=== PATIENT | male | born 1970 | race Caucasian/White ===

== ENCOUNTER 2017-09-08 02:17 | Inpatient (IN) | payer OTHER ==
[2017-09-08] MEDS ORDERED: Thiamine IV 100 MG, Folic Acid IV* 1 MG, Multiple Vitamin IV ADULT* 10 ML in D5NS 0.9% ... IV ONE (02:45)
[2017-09-08] MEDS ORDERED: Pantoprazole IV* 40 MG IV ONE (02:46)
[2017-09-08] MEDS ORDERED: LORazepam INJ* 2 MG/ML 1 ML VIAL IV PUSH ONE ×2 (02:46→04:24)
[2017-09-08 03:01] LABS: ABS Basophils 0.1 10^3/ul (0-0.2); ABS Eosinophils 0 10^3/ul (0-0.6); ABS Lymphocytes 1.9 10^3/ul (1.0-4.8); ABS Monocytes 0.8 10^3/ul (0-0.8); ABS Nucleated RBC 0 10^3/ul; Eosinophil % 0.1 % (0-6); Hematocrit 43 % (42-52); Hemoglobin 14.6 g/dl (14.0-18.0); Lymphocyte % 28.5 % (25-47); Mean Corpuscular HGB Conc 34 g/dl (31-36); Mean Corpuscular Hemoglobin 34 pg (27-31); Mean Corpuscular Volume 99 fL (80-94); Mean Platelet Volume 6.3 um3 (7.4-10.4); Nucleated Red Blood Cells % 0.1; Platelet Count 249 10^3/ul (150-450); Red Blood Count 4.34 10^6/ul (4.0-5.4); Red Cell Distribution Width 16 % (10.5-15); White Blood Count 6.8 10^3/ul (3.5-10.8)
[2017-09-08 03:09] LABS: INR 0.79 (0.77-1.02)
[2017-09-08 03:47] LABS: EGFR Non-African American 111.2 (>60)
[2017-09-08] MEDS ORDERED: NS 0.9% 1000 ML* 1,000 ML IV ONE ×2 (03:47→03:56)
[2017-09-08] MEDS ORDERED: LORazepam INJ* 2 MG/ML 1 ML VIAL ONE (04:25)
[2017-09-08] MEDS ORDERED: Diazepam SYRINGE* 5 MG/ML 2 ML SYRINGE (10 MG total) IV ONE (04:51)
[2017-09-08 05:00] LABS: Urine Appearance Clear; Urine Blood 1+ (Negative); Urine Color Colorless; Urine Ketones Negative (Negative); Urine Protein Negative (Negative); Urine Specific Gravity 1.002 (1.010-1.030); Urine Urobilinogen Negative (Negative)
[2017-09-08] MEDS ORDERED: Diazepam INJ (NF) 5 MG/ML 10 ML VIAL (50 MG TOTAL) IV ONE (05:00)
[2017-09-08] MEDS ORDERED: Ondansetron 40 MG VIAL* 2 MG/ML 20 ML VIAL IV PRN (05:03)
[2017-09-08] MEDS ORDERED: NS 0.9% 1000 ML* 1,000 ML IV SCH (05:15)
--- NOTE | 2017-09-08 05:17 | HP ---
H&P (Free Text) History and Physical: PCP: Yoselin Nuno MD Date/Time: 08/08/2017 0500 CC: acute alcohol intoxication, relapsed severe alcoholism HPI: Mr Constantino is a 47YO male poor historian HX alcoholism who is unable to give an adequate history due to having a blood alcohol of 438. He is highly tangential and unable to be focused on the question at hand. He was reportedly brought to [facility] by his who reported he had relapsed into alcoholism a few weeks ago with heavy daily drinking for the past month. There was report of dark red/coffee ground emesis although he denies N/V at this time. He also denies black stools, chest pain, palpitations, & light-headedness. PMedHx alcoholism alcoholic hepatitis anxiety Ambulatory Orders Nursing to reconcile. Blue Rocio 0.25 teasp PO DAILY PRN 11/27/14 Cholecalciferol [Vitamin D] 1,000 unit PO QAM 11/27/14 Hydrocodone-Acetaminophen [Hydrocodone Bitartrate/AC] 1 tab PO Q6H PRN 11/27/14 Kava Root Extract [Kava Kava] 200 mg PO DAILY PRN 11/27/14 Kratom 3 teasp PO BID PRN 11/27/14 Liverpool-3 Fatty Acids/Fish Oil [Liverpool 3] 1 cap PO QAM 11/27/14 Vitamin B Complex CAP* [B Complex CAP*] 1 cap PO QAM 11/27/14 Allergies No Known Allergies Allergy (Verified 02/15/17 12:47) PSurgHx hip replacement SocHx: active alcoholic drinking an uncertain amount daily, denies alcohol & recreational drugs; lives alone; full code status FamHx: positive for DM & cancer ROS: as above, otherwise reviewed and all were negative vitals: Vital Signs Temp 37.7 C 09/08/17 02:23 Pulse 118 09/08/17 05:00 Resp 18 09/08/17 05:00 BP 108/75 09/08/17 04:34 Pulse Ox 95 09/08/17 05:00 Intake & Output 09/07/17 09/07/17 09/08/17 11:59 23:59 11:59 Weight 95.254 kg Constitutional: NAD, normally developed, overweight white male HEENM: atraumatic; sclera/conjunctiva: anicteric/clear; hearing: clinically intact; oropharynx: clear, mucosa tacky Neck: soft tissue: non-tender; thyroid: normal Pulmonary: clear to auscultation bilaterally, good aeration, no accessory muscle use CV: RR/RR, normal S1S2, no carotid bruit, no jugular venous distention, 2+ B DP/ PT, no edema Abdominal: soft, non-distended, non-tender, no rebound/guarding/rigidity, normoactive bowel sounds, no hepatosplenomegaly or masses, no costovertebral angle tenderness Musculoskeletal: general: grossly intact, non-tender Integumental: normal appearance & texture of exposed skin, no jaundice Psychiatric orientation: AA&O to PP, not TS affect: calm mood: cooperative eye contact: fair content: unreliable responses: mildly slowed insight: poor Testing: Lab Results 09/08/17 09/08/17 09/08/17 Range/Units 02:51 02:51 02:51 WBC 6.8 (3.5-10.8) 10^3/ul RBC 4.34 (4.0-5.4) 10^6/ul Hgb 14.6 (14.0-18.0) g/dl Hct 43 (42-52) % MCV 99 H (80-94) fL MCH 34 H (27-31) pg MCHC 34 (31-36) g/dl RDW 16 H (10.5-15) % Plt Count 249 (150-450) 10^3/ul MPV 6.3 L (7.4-10.4) um3 Neut % (Auto) 59.1 (38-83) % Lymph % (Auto) 28.5 (25-47) % Mayes % (Auto) 11.3 H (0-7) % Eos % (Auto) 0.1 (0-6) % Baso % (Auto) 1.0 (0-2) % Absolute Neuts (auto) 4.0 (1.5-7.7) 10^3/ul Absolute Lymphs (auto) 1.9 (1.0-4.8) 10^3/ul Absolute Monos (auto) 0.8 (0-0.8) 10^3/ul Absolute Eos (auto) 0 (0-0.6) 10^3/ul Absolute Basos (auto) 0.1 (0-0.2) 10^3/ul Absolute Nucleated RBC 0 10^3/ul Nucleated RBC % 0.1 INR (Anticoag Therapy) (0.77-1.02) APTT (26.0-36.3) seconds Sodium 137 L (139-145) mmol/L Potassium 3.7 (3.5-5.0) mmol/L Chloride 95 L (101-111) mmol/L Carbon Dioxide 26 (22-32) mmol/L Anion Gap 16 H (2-11) mmol/L BUN 3 L (6-24) mg/dL Creatinine 0.75 (0.67-1.17) mg/dL Est GFR ( Amer) 143.0 (>60) Est GFR (Non-Af Amer) 111.2 (>60) BUN/Creatinine Ratio 4.0 L (8-20) Glucose 110 H (70-100) mg/dL Lactic Acid 4.5 H* (0.5-2.0) mmol/L Calcium 9.5 (8.6-10.3) mg/dL Total Bilirubin 0.50 (0.2-1.0) mg/dL AST 81 H (13-39) U/L ALT 50 (7-52) U/L Alkaline Phosphatase 82 (34-104) U/L Total Creatine Kinase 136 (10-223) U/L C-Reactive Protein 1.07 (< 5.00) mg/L Total Protein 7.6 (6.4-8.9) g/dL Albumin 4.5 (3.2-5.2) g/dL Globulin 3.1 (2-4) g/dL Albumin/Globulin Ratio 1.5 (1-3) TSH 0.69 (0.34-5.60) mcIU/mL Urine Color Urine Appearance Urine pH (5-9) Ur Specific [place]side (1.010-1.030) Urine Protein (Negative) Urine Ketones (Negative) Urine Blood (Negative) Urine Nitrate (Negative) Urine Bilirubin (Negative) Urine Urobilinogen (Negative) Ur Leukocyte Esterase (Negative) Urine WBC (Auto) (Absent) Urine RBC (Auto) (Absent) Urine Bacteria (Absent) Urine Glucose (Negative) Serum Alcohol 438 H* (<10) mg/dL 09/08/17 09/08/17 Range/Units 02:51 04:49 WBC (3.5-10.8) 10^3/ul RBC (4.0-5.4) 10^6/ul Hgb (14.0-18.0) g/dl Hct (42-52) % MCV (80-94) fL MCH (27-31) pg MCHC (31-36) g/dl RDW (10.5-15) % Plt Count (150-450) 10^3/ul MPV (7.4-10.4) um3 Neut % (Auto) (38-83) % Lymph % (Auto) (25-47) % Mayes % (Auto) (0-7) % Eos % (Auto) (0-6) % Baso % (Auto) (0-2) % Absolute Neuts (auto) (1.5-7.7) 10^3/ul Absolute Lymphs (auto) (1.0-4.8) 10^3/ul Absolute Monos (auto) (0-0.8) 10^3/ul Absolute Eos (auto) (0-0.6) 10^3/ul Absolute Basos (auto) (0-0.2) 10^3/ul Absolute Nucleated RBC 10^3/ul Nucleated RBC % INR (Anticoag Therapy) 0.79 (0.77-1.02) APTT 29.0 (26.0-36.3) seconds Sodium (139-145) mmol/L Potassium (3.5-5.0) mmol/L Chloride (101-111) mmol/L Carbon Dioxide (22-32) mmol/L Anion Gap (2-11) mmol/L BUN (6-24) mg/dL Creatinine (0.67-1.17) mg/dL Est GFR ( Amer) (>60) Est GFR (Non-Af Amer) (>60) BUN/Creatinine Ratio (8-20) Glucose (70-100) mg/dL Lactic Acid (0.5-2.0) mmol/L Calcium (8.6-10.3) mg/dL Total Bilirubin (0.2-1.0) mg/dL AST (13-39) U/L ALT (7-52) U/L Alkaline Phosphatase (34-104) U/L Total Creatine Kinase (10-223) U/L C-Reactive Protein (< 5.00) mg/L Total Protein (6.4-8.9) g/dL Albumin (3.2-5.2) g/dL Globulin (2-4) g/dL Albumin/Globulin Ratio (1-3) TSH (0.34-5.60) mcIU/mL Urine Color Colorless Urine Appearance Clear Urine pH 8.0 (5-9) Ur Specific [place] 1.002 L (1.010-1.030) Urine Protein Negative (Negative) Urine Ketones Negative (Negative) Urine Blood 1+ A (Negative) Urine Nitrate Negative (Negative) Urine Bilirubin Negative (Negative) Urine Urobilinogen Negative (Negative) Ur Leukocyte Esterase Negative (Negative) Urine WBC (Auto) Absent (Absent) Urine RBC (Auto) Absent (Absent) Urine Bacteria Absent (Absent) Urine Glucose Negative (Negative) Serum Alcohol (<10) mg/dL ECG, personally reviewed: sinus tachycardia rate 124, Q-waves II/III/AVF, no ischemia Impression: 47M HX alcoholism presents in active relapse DIAGNOSIS & PLAN Primary active alcoholism w/ acute alcohol poisoning : IVFs : WAM protocol lactic acidosis : IVFs, trend Admission Rational: inpatient for acute alcohol poisoning & anticipated withdrawal not anticipated to be adequately resolved/stabilized w/i 48h to allow for discharge DVTp: SCDs Code Status: full HCP: mother, Marilee
[2017-09-08] MEDS ORDERED: Diazepam INJ (NF) 5 MG/ML 10 ML VIAL (50 MG TOTAL) ONE (05:23)
--- NOTE | 2017-09-08 06:16 | ED ---
Jayson Ferreira Angela, scribed for Saida Gibson MD on 09/08/17 at 0259 . Substance Abuse/Use - HPI Summary HPI Summary: This pt is a 47 y/o male presenting to [facility] for alcohol intoxication. Ex- reports the pt has been drinking heavily for the past 30 days and intermittently for the past 1 year. Ex- states the pt's best friend has recently , 3 weeks ago. Per ex-, pt has had dark red emesis yesterday and today. When asked if pt has pain, he states "I have pain everywhere." PMHx includes alcoholic hepatitis, L hip replacement, alcohol abuse, anxiety. 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 Pt is no longer in dialysis. He was told not to drink alcohol again. - History Of Current Complaint Chief Complaint: EDSubstanceAbuse Stated Complaint: INTOXICATION Time Seen by Provider: 09/08/17 02:33 Hx Obtained From: Patient, Family/Business Segment Manager - Ex- Onset/Duration of Drug/ETOH Abuse: Days - 30 Ingestion History: Type/Name Of Drug - alcohol Overdose Characteristics: Oral Timing Of Abuse: Binge Use Severity Currently: Severe Character: Anxious, Stuporous Aggravating Factor(s): Recent Stress - recent of best friend Alleviating Factor(s): Nothing Associated Signs And Symptoms: Nausea, Vomiting Related Hx: Recent Stressors - Allergies/Home Medications Allergies/Adverse Reactions: Allergies Allergy/AdvReac Type Severity Reaction Status Date / Time No Known Allergies Allergy Verified 02/15/17 12:47 PMH/Surg Hx/FS Hx/Imm Hx Endocrine/Hematology History: Denies: Hx Diabetes - HAD ALCOHOL INDUCED DIABETES Cardiovascular History: Denies: Hx Hypertension, Hx Pacemaker/ICD Respiratory History: Denies: Hx Asthma History: Reports: Hx Dialysis - ALCOHOL INDUCED 2011, Hx Renal Disease - ALCOHOL INDUCED 2011 Musculoskeletal History: Denies: Hx Rheumatoid Arthritis, Hx Osteoporosis Sensory History: Reports: Hx Contacts or Glasses - GLASSES Denies: Hx Hearing Aid Opthamlomology History: Reports: Hx Contacts or Glasses - GLASSES Neurological History: Reports: Hx Migraine - 2-3 TIMES/ MONTH- STRESS RELATED Psychiatric History: Reports: Hx Anxiety - MANAGED WITH HERBS, Hx Substance Abuse - alcohol Denies: Hx Panic Disorder - Surgical History Surgery Procedure, Year, and Place: SINUS SURGERY A CHILD- AGE 4[place] ;. FISTULA FOR DIALYSIS THAT HAS BEEN REMOVED 2011 ;. LEFT HIP REPLACEMENT Hx Anesthesia Reactions: No - Immunization History Date of Tetanus Vaccine: unk Date of Influenza Vaccine: unk Infectious Disease History: No Infectious Disease History: Reports: Hx Hepatitis - alcoholic Denies: Traveled Outside the [place] in Last 30 Days - Family History Known Family History: Positive: Hypertension - mother - Social History Alcohol Use: Daily Alcohol Amount: intermittent 1 year, constantly 1 month Substance Use Type: Reports: None Smoking Status (MU): Never Smoked Tobacco Review of Systems Negative: Fever, Chills Eyes: Negative ENT: Negative Positive: Abdominal Pain, Vomiting, Nausea Musculoskeletal: Other - "pain everywhere" All Other Systems Reviewed And Are Negative: Yes Physical Exam - Summary Physical Exam Summary: VITAL SIGNS: Reviewed. GENERAL: Patient is a well-developed and nourished male who is lying comfortable in the stretcher. Patient is not in any acute respiratory distress. HEAD AND FACE: No signs of trauma. No ecchymosis, hematomas or skull depressions. No sinus tenderness. EYES: PERRLA, EOMI x 2, No injected conjunctiva, no nystagmus. EARS: Hearing grossly intact. Ear canals and tympanic membranes are within normal limits. MOUTH: Oropharynx within normal limits. NECK: Supple, trachea is midline, no adenopathy, no JVD, no carotid bruit, no c- spine tenderness, neck with full ROM. CHEST: Symmetric, no tenderness at palpation LUNGS: Clear to auscultation bilaterally. No wheezing or crackles. CVS: Regular rate and rhythm, S1 and S2 present, no murmurs or gallops appreciated. ABDOMEN: Soft, non-tender. No signs of distention. No rebound no guarding, and no masses palpated. Bowel sounds are normal. EXTREMITIES: FROM in all major joints, no edema, no cyanosis or clubbing. NEURO: Alert and oriented x 3. No acute neurological deficits. Speech is normal and follows commands. SKIN: Dry and warm Triage Information Reviewed: Yes Vital Signs On Initial Exam: Initial Vitals Temp Pulse Resp BP Pulse Ox 99.8 F 146 24 129/92 97 09/08/17 02:23 09/08/17 02:23 09/08/17 02:23 09/08/17 02:23 09/08/17 02:23 Vital Signs Reviewed: Yes Diagnostics - Vital Signs Vital Signs Temp Pulse Resp BP Pulse Ox 09/08/17 02:23 99.8 F 146 24 129/92 97 - Laboratory Result Diagrams: 09/08/17 02:51 09/08/17 02:51 Lab Statement: Any lab studies that have been ordered have been reviewed, and results considered in the medical decision making process. - Radiology Chest XR Xray Interpretation: No Acute Changes - no acute process. Pending official radiology report. Radiology Interpretation Completed By: ED Physician - EKG 03:42 Cardiac Rate: Tachycardia - at 124 bpm EKG Rhythm: Sinus Tachycardia EKG Interpretation: Normal axis. Normal interval. No ischemic changes Course/Dx - Course Assessment/Plan: Pt is a 47 y/o male who presents with alcohol intoxication. Ex- reports the pt has been drinking heavily for the past 30 days and intermittently for the past 1 year. Ex- states the pt's best friend has recently , 3 weeks ago. Per ex-, pt has had dark red emesis yesterday and today. When asked if pt has pain, he states "I have pain everywhere.". Test results show lactic acid of 4.5, AST of 81. Serum alcohol is 438. Chest XR is negative. In the ED course the pt was given IV fluids, a banana bag, Ativan, valium, protonix. Pt continues to be tachycardic in the ED. I discussed pt care with Dr. Lechuga, hospitalist, who accepted the pt for admission. - Diagnoses Provider Diagnoses: Alcohol intoxication, Tachycardia - Physician Notifications Discussed Care Of Patient With: Chava Lechuga Time Discussed With Above Provider: 04:56 Instructed by Provider To: Other - I discussed pt care with Dr. Lechuga, hospitalist, who accepted the pt for admission. Discharge - Sign-Out/Discharge Documenting (check all that apply): Discharge/Admit/Transfer - Admit - Discharge Plan Condition: Stable Disposition: ADMITTED TO [facility] documentation as recorded by the Jayson gupta Angela accurately reflects the service I personally performed and the decisions made by me, Saida Gibson MD.
[2017-09-08] MEDS: NS 0.9% 1000 ML* 1,000 ML IV SCH ×2 (07:20→09:47)
[2017-09-08] MEDS: LORazepam INJ* 2 MG/ML 1 ML VIAL IV PUSH SCH ×7 (07:20→22:07)
--- NOTE | 2017-09-08 07:59 | RAD ---
HISTORY: Intoxication COMPARISONS: November 27, 2014, shoulder dated February 12, 2016 VIEWS: 1: frontal portable view of the chest at 5:09 AM FINDINGS: LINES AND TUBES: None. CARDIOMEDIASTINAL SILHOUETTE: The cardiomediastinal silhouette is normal for portable technique. PLEURA: The costophrenic angles are sharp. No pleural abnormalities are noted. LUNG PARENCHYMA: The lungs are clear. ABDOMEN: The upper abdomen is clear. There is no subphrenic gas. BONES AND SOFT TISSUES: There are advanced erosive changes of the right humeral head. Radiopaque foreign bodies are noted overlying the neck, right upper chest, and right lateral chest IMPRESSION: NO ACTIVE CARDIOPULMONARY DISEASE.
[2017-09-08] MEDS: Folic Acid TAB* 1 MG PO SCH (09:49)
[2017-09-08] MEDS: Multivitamins/Minerals TAB PO SCH (09:49)
[2017-09-08] MEDS: Thiamine TAB* 100 MG TAB PO SCH (09:50)
[2017-09-08] MEDS: Acetaminophen TAB* 325 MG PO PRN ×2 (11:35→19:53)
--- NOTE | 2017-09-08 15:17 | PN ---
Subjective Date of Service: 09/08/17 Interval History: No c/o. Objective Active Medications: Acetaminophen (Tylenol Tab*) 650 mg PO Q4H PRN PRN Reason: PAIN Last Admin: 09/08/17 11:35 Dose: 650 mg Folic Acid (Folvite Tab*) 1 mg PO DAILY [facility] Last Admin: 09/08/17 09:49 Dose: 1 mg Lorazepam (Ativan Inj*) 0 - 6 mg IV PUSH .PER [facility] PROTOCOL [facility] PRN Reason: Protocol Last Admin: 09/08/17 13:20 Dose: 3 mg Multivitamins/Minerals (Theragran/Minerals Tab*) 1 tab PO DAILY [facility] Last Admin: 09/08/17 09:49 Dose: 1 tab Ondansetron HCl (Zofran 40 Mg Vial*) 4 mg IV Q6H PRN PRN Reason: NAUSEA Thiamine HCl (Vitamin B-1 Tab*) 100 mg PO DAILY [facility] Last Admin: 09/08/17 09:50 Dose: 100 mg Vital Signs - 8 hr 09/08/17 09/08/17 09/08/17 07:20 08:00 08:08 Temperature Pulse Rate 110 Respiratory 24 18 20 Rate Blood Pressure 135/93 (mmHg) O2 Sat by Pulse 96 Oximetry 09/08/17 09/08/17 09/08/17 09:17 09:22 09:46 Temperature 99.4 F Pulse Rate 111 Respiratory 20 20 20 Rate Blood Pressure 119/77 (mmHg) O2 Sat by Pulse 97 Oximetry 09/08/17 09/08/17 09/08/17 11:02 11:03 11:36 Temperature 97.9 F Pulse Rate 100 Respiratory 20 20 20 Rate Blood Pressure 133/78 (mmHg) O2 Sat by Pulse 98 Oximetry 09/08/17 09/08/17 09/08/17 12:45 13:06 13:20 Temperature 97.6 F Pulse Rate 104 Respiratory 18 20 18 Rate Blood Pressure 141/91 (mmHg) O2 Sat by Pulse 97 Oximetry 09/08/17 15:05 Temperature Pulse Rate Respiratory 18 Rate Blood Pressure (mmHg) O2 Sat by Pulse Oximetry Oxygen Devices in Use Now: None Appearance: Slow to responds, passive. On his side in bed. Looks comfortable. Eyes: No Scleral Icterus Respiratory: Symmetrical Chest Expansion and Respiratory Effort, Clear to Auscultation, Clear to Percussion Cardiovascular: NL Sounds; No Murmurs; No JVD, RRR, No Edema, - Extremities: No Edema, No Clubbing, Cyanosis, - Skin: No Rash or Ulcers, No Nodules or Sclerosis, - Neurological: NL Sensation - Disoriented, thought he was in a doctor's office, could not name the present month. He gave his age as 46, stated he lived in [place]. Result Diagrams: 09/08/17 02:51 09/08/17 02:51 Assess/Plan/Problems-Billing Assessment: - Patient Problems (1) Alcoholism Current Visit: Yes Status: Acute Code(s): F10.20 - ALCOHOL DEPENDENCE, UNCOMPLICATED SNOMED Code(s): 0541046 Comment: Possible combination of alcohol withdrawal and Wernicke's encephalopathy. Also alcoholic liver disease. Repeat CMP 09/09. Continue thiamine, folic acid, PRN lorazepam.
[2017-09-09] MEDS: LORazepam INJ* 2 MG/ML 1 ML VIAL IV PUSH SCH ×5 (00:13→13:22)
[2017-09-09 06:54] LABS: EGFR Non-African American 104.7 (>60)
[2017-09-09] MEDS: Multivitamins/Minerals TAB PO SCH (08:18)
[2017-09-09] MEDS: Thiamine TAB* 100 MG TAB PO SCH (08:18)
[2017-09-09] MEDS: Folic Acid TAB* 1 MG PO SCH (08:18)
--- NOTE | 2017-09-09 14:22 | PN ---
Subjective Date of Service: 09/09/17 Interval History: No c/o. He states he ate most of his lunch. Objective Active Medications: Acetaminophen (Tylenol Tab*) 650 mg PO Q4H PRN PRN Reason: PAIN Last Admin: 09/08/17 19:53 Dose: 650 mg Chlordiazepoxide (Librium Cap*) 25 mg PO TID [facility] Chlordiazepoxide (Librium Cap*) 25 mg PO Q2H PRN PRN Reason: ANXIETY Folic Acid (Folvite Tab*) 1 mg PO DAILY [facility] Last Admin: 09/09/17 08:18 Dose: 1 mg Lorazepam (Ativan Inj*) 3 mg IV PUSH Q6H PRN PRN Reason: ANXIETY Multivitamins/Minerals (Theragran/Minerals Tab*) 1 tab PO DAILY [facility] Last Admin: 09/09/17 08:18 Dose: 1 tab Ondansetron HCl (Zofran 40 Mg Vial*) 4 mg IV Q6H PRN PRN Reason: NAUSEA Thiamine HCl (Vitamin B-1 Tab*) 100 mg PO DAILY [facility] Last Admin: 09/09/17 08:18 Dose: 100 mg Vital Signs - 8 hr 09/09/17 09/09/17 09/09/17 06:33 06:42 07:45 Temperature Pulse Rate 86 Respiratory 19 20 19 Rate Blood Pressure 154/102 (mmHg) O2 Sat by Pulse 99 Oximetry 09/09/17 09/09/17 09/09/17 08:03 08:10 09:01 Temperature 99.1 F 98.1 F Pulse Rate 89 105 Respiratory 17 17 16 Rate Blood Pressure 146/93 143/86 (mmHg) O2 Sat by Pulse 97 98 Oximetry 09/09/17 09/09/17 09/09/17 09:03 11:03 11:07 Temperature 99.3 F Pulse Rate 89 Respiratory 18 16 20 Rate Blood Pressure 148/94 (mmHg) O2 Sat by Pulse 98 Oximetry 09/09/17 09/09/17 09/09/17 11:52 12:15 13:13 Temperature 98.4 F 98.2 F Pulse Rate 87 115 Respiratory 14 18 16 Rate Blood Pressure 138/86 145/94 (mmHg) O2 Sat by Pulse 97 96 Oximetry 09/09/17 13:22 Temperature Pulse Rate Respiratory 20 Rate Blood Pressure (mmHg) O2 Sat by Pulse Oximetry Oxygen Devices in Use Now: None Appearance: Alert, partly up in bed. Slightly restless but also passive. Eyes: No Scleral Icterus Respiratory: Symmetrical Chest Expansion and Respiratory Effort, Clear to Auscultation, Clear to Percussion Cardiovascular: NL Sounds; No Murmurs; No JVD, RRR, No Edema, - Extremities: No Edema, No Clubbing, Cyanosis, - Skin: No Rash or Ulcers, No Nodules or Sclerosis, - Neurological: Alert and Oriented x 3, NL Sensation Result Diagrams: 09/08/17 02:51 09/09/17 06:17 Assess/Plan/Problems-Billing Assessment: - Patient Problems (1) Alcoholism Current Visit: Yes Status: Acute Code(s): F10.20 - ALCOHOL DEPENDENCE, UNCOMPLICATED SNOMED Code(s): 5966285 Comment: Possible combination of alcohol withdrawal and Wernicke's encephalopathy. Also alcoholic liver disease. AST down to 41 on 09/09. Continue thiamine, folic acid, PRN lorazepam. Scheduled & PRN chlordiazepoxide.
[2017-09-09] MEDS: chlordiazePOXIDE CAP* 25 MG PO SCH ×2 (15:15→21:37)
[2017-09-09] MEDS: Benzocaine/Menthol LOZ* 1 LOZENGE PO PRN ×2 (18:00→22:14)
[2017-09-09] MEDS: chlordiazePOXIDE CAP* 25 MG PO PRN (18:00)
[2017-09-09] MEDS: LORazepam INJ* 2 MG/ML 1 ML VIAL IV PUSH PRN (23:55)
[2017-09-10] MEDS: chlordiazePOXIDE CAP* 25 MG PO PRN ×5 (03:01→17:33)
[2017-09-10] MEDS: LORazepam INJ* 2 MG/ML 1 ML VIAL IV PUSH PRN ×3 (06:34→21:15)
[2017-09-10] MEDS: Benzocaine/Menthol LOZ* 1 LOZENGE PO PRN ×3 (07:48→14:30)
[2017-09-10] MEDS: Thiamine TAB* 100 MG TAB PO SCH (07:48)
[2017-09-10] MEDS: Multivitamins/Minerals TAB PO SCH (07:48)
[2017-09-10] MEDS: Folic Acid TAB* 1 MG PO SCH (07:49)
[2017-09-10] MEDS: chlordiazePOXIDE CAP* 25 MG PO SCH ×3 (09:08→21:07)
[2017-09-10] MEDS: Acetaminophen TAB* 325 MG PO PRN (09:59)
--- NOTE | 2017-09-10 12:12 | PN ---
Subjective Date of Service: 09/10/17 Interval History: C/O difficulty sleeping. Appetite OK. No new c/o. Objective Active Medications: Acetaminophen (Tylenol Tab*) 650 mg PO Q4H PRN PRN Reason: PAIN Last Admin: 09/10/17 09:59 Dose: 650 mg Chlordiazepoxide (Librium Cap*) 25 mg PO TID [facility] Last Admin: 09/10/17 09:08 Dose: 25 mg Chlordiazepoxide (Librium Cap*) 25 mg PO Q3H PRN PRN Reason: ANXIETY Folic Acid (Folvite Tab*) 1 mg PO DAILY [facility] Last Admin: 09/10/17 07:49 Dose: 1 mg Lorazepam (Ativan Inj*) 3 mg IV PUSH Q6H PRN PRN Reason: ANXIETY Last Admin: 09/10/17 06:34 Dose: 3 mg Multivitamins/Minerals (Theragran/Minerals Tab*) 1 tab PO DAILY [facility] Last Admin: 09/10/17 07:48 Dose: 1 tab Ondansetron HCl (Zofran 40 Mg Vial*) 4 mg IV Q6H PRN PRN Reason: NAUSEA Sertraline HCl (Zoloft*) 25 mg PO DAILY [facility] Thiamine HCl (Vitamin B-1 Tab*) 100 mg PO DAILY [facility] Last Admin: 09/10/17 07:48 Dose: 100 mg Throat Lozenges (Chloraseptic Elias*) 1 elias PO Q2H PRN PRN Reason: SORE THROAT Last Admin: 09/10/17 09:55 Dose: 1 elias Vital Signs - 8 hr 09/10/17 09/10/17 09/10/17 05:05 06:13 06:34 Temperature Pulse Rate Respiratory 19 20 Rate Blood Pressure (mmHg) O2 Sat by Pulse 97 Oximetry 09/10/17 09/10/17 09/10/17 07:41 07:49 09:08 Temperature 97.8 F Pulse Rate 76 Respiratory 16 19 18 Rate Blood Pressure 139/98 (mmHg) O2 Sat by Pulse 98 Oximetry 09/10/17 09/10/17 09:54 11:41 Temperature 98.7 F Pulse Rate 81 Respiratory 16 16 Rate Blood Pressure 141/121 (mmHg) O2 Sat by Pulse 97 Oximetry Oxygen Devices in Use Now: None Appearance: Alert, partly up in bed. Neutral affect, passive. Looks comfortable. Eyes: No Scleral Icterus Extremities: No Edema, No Clubbing, Cyanosis, - Skin: No Rash or Ulcers, No Nodules or Sclerosis, - Neurological: Alert and Oriented x 3, NL Sensation - He knows the present month and the name of the facility. No tremor. Result Diagrams: 09/08/17 02:51 09/09/17 06:17 Assess/Plan/Problems-Billing Assessment: - Patient Problems (1) Alcoholism Current Visit: Yes Status: Acute Code(s): F10.20 - ALCOHOL DEPENDENCE, UNCOMPLICATED SNOMED Code(s): 1683487 Comment: Possible combination of alcohol withdrawal and Wernicke's encephalopathy. Also alcoholic liver disease. AST down to 41 on 09/09. Continue thiamine, folic acid, PRN lorazepam. Scheduled & PRN chlordiazepoxide. Nurse states patient requests PRN chlordiazepoxide for anxiety. Sertraline started 09/10, should be titrated up in 2-3 days. PRN interval for chlordiazepoxide increased 09/10. PT/OT eval ordered.
[2017-09-10] MEDS: Sertraline* 25 MG TAB PO SCH (13:00)
[2017-09-10] MEDS: Zolpidem TAB* 10 MG PO PRN (23:41)
[2017-09-11] MEDS: LORazepam INJ* 2 MG/ML 1 ML VIAL IV PUSH PRN (03:17)
[2017-09-11] MEDS: Folic Acid TAB* 1 MG PO SCH (07:44)
[2017-09-11] MEDS: chlordiazePOXIDE CAP* 25 MG PO SCH ×3 (07:45→19:33)
[2017-09-11] MEDS: Thiamine TAB* 100 MG TAB PO SCH (07:45)
[2017-09-11] MEDS: Multivitamins/Minerals TAB PO SCH (07:46)
[2017-09-11] MEDS: Sertraline* 25 MG TAB PO SCH (07:46)
--- NOTE | 2017-09-11 11:22 | PN ---
Subjective Date of Service: 09/11/17 Interval History: Pt is feeling ok. Anxiety remains the biggest issue for the patient. He states that he has been having a hard time sleeping at night. 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 Objective Active Medications: Acetaminophen (Tylenol Tab*) 650 mg PO Q4H PRN PRN Reason: PAIN Last Admin: 09/10/17 09:59 Dose: 650 mg Buspirone HCl (Buspar Tab *) 15 mg PO BID [facility] Chlordiazepoxide (Librium Cap*) 25 mg PO TID [facility] Last Admin: 09/11/17 07:45 Dose: 25 mg Chlordiazepoxide (Librium Cap*) 25 mg PO Q3H PRN PRN Reason: ANXIETY Last Admin: 09/10/17 17:33 Dose: 25 mg Folic Acid (Folvite Tab*) 1 mg PO DAILY [facility] Last Admin: 09/11/17 07:44 Dose: 1 mg Multivitamins/Minerals (Theragran/Minerals Tab*) 1 tab PO DAILY [facility] Last Admin: 09/11/17 07:46 Dose: 1 tab Ondansetron HCl (Zofran 40 Mg Vial*) 4 mg IV Q6H PRN PRN Reason: NAUSEA Sertraline HCl (Zoloft*) 25 mg PO DAILY [facility] Last Admin: 09/11/17 07:46 Dose: 25 mg Thiamine HCl (Vitamin B-1 Tab*) 100 mg PO DAILY [facility] Last Admin: 09/11/17 07:45 Dose: 100 mg Throat Lozenges (Chloraseptic Elias*) 1 elias PO Q2H PRN PRN Reason: SORE THROAT Last Admin: 09/10/17 14:30 Dose: 1 elias Zolpidem Tartrate (Ambien Tab*) 10 mg PO BEDTIME PRN PRN Reason: INSOMNIA Last Admin: 09/10/17 23:41 Dose: 10 mg Vital Signs - 8 hr 09/11/17 09/11/17 09/11/17 03:17 05:04 07:15 Temperature Pulse Rate Respiratory 20 20 16 Rate Blood Pressure (mmHg) O2 Sat by Pulse Oximetry 09/11/17 09/11/17 09/11/17 07:32 07:45 11:07 Temperature 98.0 F Pulse Rate 79 Respiratory 16 18 18 Rate Blood Pressure 122/81 (mmHg) O2 Sat by Pulse 98 Oximetry Oxygen Devices in Use Now: None Appearance: Middle aged male sitting up in bed, NAD Eyes: No Scleral Icterus Ears/Nose/Mouth/Throat: Mucous Membranes Moist Respiratory: Symmetrical Chest Expansion and Respiratory Effort, Clear to Auscultation Cardiovascular: NL Sounds; No Murmurs; No JVD, RRR, No Edema Abdominal: NL Sounds; No Tenderness; No Distention Extremities: No Clubbing, Cyanosis Skin: No Nodules or Sclerosis Neurological: Alert and Oriented x 3 Result Diagrams: 09/08/17 02:51 09/09/17 06:17 Assess/Plan/Problems-Billing Mr Constantino is a 47 yo M who has a h/o alcoholism who presented to the ER intoxicated and was admitted for management of expected alcohol withdrawal. - Patient Problems (1) Alcoholism Current Visit: Yes Status: Acute Code(s): F10.20 - ALCOHOL DEPENDENCE, UNCOMPLICATED SNOMED Code(s): 7592737 Comment: The patient is not showing any signs of alcohol withdrawal. He remains on thiamine and folic acid. Ativan IV discontinued today. Continue standing and prn librium for now. (2) Anxiety Current Visit: Yes Status: Acute Code(s): F41.9 - ANXIETY DISORDER, UNSPECIFIED SNOMED Code(s): 81739181 Comment: Continue librium as above but will also add buspar to sertraline which was started yesterday. The patient states his anxiety is currently not well managed. Will get psychiatry eval today. He is concerned about his libido being affected by the SSRI. He states he was on lithium at one point. (3) DVT prophylaxis Current Visit: Yes Status: Acute Code(s): BVG2416 - SNOMED Code(s): 199669355 Comment: Chanda
[2017-09-11] MEDS: chlordiazePOXIDE CAP* 25 MG PO PRN ×2 (11:55→22:49)
[2017-09-11] MEDS: busPIRone TAB* 15 MG PO SCH ×2 (11:56→19:33)
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
[2017-09-11] MEDS: hydrOXYzine HCL TAB* 50 MG PO PRN (16:48)
[2017-09-11] MEDS: Zolpidem TAB* 10 MG PO PRN (22:49)
[2017-09-11] MEDS: Acetaminophen TAB* 325 MG PO PRN (22:50)
[2017-09-12] MEDS: hydrOXYzine HCL TAB* 50 MG PO PRN ×2 (00:25→11:47)
[2017-09-12] MEDS: chlordiazePOXIDE CAP* 25 MG PO PRN ×2 (06:00→17:14)
[2017-09-12] MEDS: Multivitamins/Minerals TAB PO SCH (08:57)
[2017-09-12] MEDS: chlordiazePOXIDE CAP* 25 MG PO SCH ×2 (08:57→13:44)
[2017-09-12] MEDS: busPIRone TAB* 15 MG PO SCH (08:57)
[2017-09-12] MEDS: Thiamine TAB* 100 MG TAB PO SCH (08:57)
[2017-09-12] MEDS: Folic Acid TAB* 1 MG PO SCH (08:57)
[2017-09-12] MEDS ORDERED: Sertraline* 50 MG TAB PO SCH (09:00)
--- NOTE | 2017-09-12 14:08 | CONSULT ---
Identification - Patient Identification Reason for Psychiatric Consultation: Patient Distress -: Patient is a 47 year old, M admitted on 09/08/17. - MHU Identification Employment Status: Employed Hx Psychiatric Hospitalization: Yes History - Objective HPI: Vimal is seen for follow up today by the psychiatry consult team. He remains anxious and has several questions related to anxiolytic medications and follow up care. He has been looking up various medicines on his phone and inquires about such med strategies as gabapentin, bupropion and clonazepam. He is encouraged to stick with the treatment plan we have already fashioned during this hospitalization and to follow up with [facility] after discharge. I spoke with unit SW Holly Hussein and asked her to make him an intake appointment at the clinic for shortly after discharge. Vimal continues to deny SI or HI and appears to be tolerating his medications well. Lab Results: Laboratory Tests 09/08/17 09/09/17 06:09 06:17 Sodium 139 Potassium 3.9 Chloride 105 Carbon Dioxide 26 Anion Gap 8 BUN 5 L Creatinine 0.79 Est GFR ( Amer) 134.6 Est GFR (Non-Af Amer) 104.7 BUN/Creatinine Ratio 6.3 L Glucose 108 H Lactic Acid 3.4 H* Calcium 8.8 Total Bilirubin 0.90 AST 41 H ALT 40 Alkaline Phosphatase 86 Total Protein 6.1 L Albumin 3.6 Globulin 2.5 Albumin/Globulin Ratio 1.4 Exam Appearance: Well Developed/Nourished Hygiene: Normal Grooming: Fairly Well Kept Psychomotor Activities: Normal Exhibits Abnormal Movement: No Attitude and Relatedness: Cooperative Eye Contact: Good - Speech Quality: Unpressured Latencies: Normal Quantity: Appropriate Patient's Decription of Mood: "Anxious" Observed Affect: Fair Affect Consistent with: Euthymia Patient's Thought Process: Coherent Thought Content: No Passive Wish, No Suicidal Planning, No Homicidal Ideation, No Paranoid Ideation Experiencing Hallucinations: No, Sensorium is Clear Type of Hallucinations: Visual: No, Auditory: No, Command: No Level of Consciousness: Alert Orientation: Yes Intact, Yes Orientated to Time, Yes Orientated to Place, Yes Orientated to Person Impulse Control: Poor Insight and Judgement: Impaired Impression - Impression Clinical Impression: 47 y.o. single, never , white male with a history of alcohol use disorder and anxiety admitted to the hospitalist service for acute alcohol poisoning and subsequent detoxification, who complains of intractable anxious symptoms. Inpatient DSM-V Dx: F41.9 Merits Inpatient Hospitalization: No Problem List - U Problems Type of Problem: Mood Status of Problem: Active Plan - Treatment Plan Treatment Plan: The patient remains on chlordiazepoxide for alcohol withdrawal prevention. For anxiety we have started trials of sertraline 50mg PO qday, buspirone 15mg PO BID and prn hydroxyzine. The patient is psychiatrically cleared for discharge and can follow up in the community at [facility]. Psychiatry is signing off. Thanks for allowing us to participate in the patient's care. Continued Medication Management: Start Medication Medications: Current Medications Acetaminophen (Tylenol Tab*) 650 mg PO Q4H PRN PRN Reason: PAIN Last Admin: 09/11/17 22:50 Dose: 650 mg Buspirone HCl (Buspar Tab *) 15 mg PO BID [facility] Last Admin: 09/12/17 08:57 Dose: 15 mg Chlordiazepoxide (Librium Cap*) 25 mg PO TID [facility] Last Admin: 09/12/17 13:44 Dose: 25 mg Chlordiazepoxide (Librium Cap*) 25 mg PO Q3H PRN PRN Reason: ANXIETY Last Admin: 09/12/17 06:00 Dose: 25 mg Folic Acid (Folvite Tab*) 1 mg PO DAILY [facility] Last Admin: 09/12/17 08:57 Dose: 1 mg Hydroxyzine HCl (Atarax Tab*) 50 mg PO Q6H PRN PRN Reason: ANXIETY Last Admin: 09/12/17 11:47 Dose: 50 mg Multivitamins/Minerals (Theragran/Minerals Tab*) 1 tab PO DAILY [facility] Last Admin: 09/12/17 08:57 Dose: 1 tab Ondansetron HCl (Zofran 40 Mg Vial*) 4 mg IV Q6H PRN PRN Reason: NAUSEA Sertraline HCl (Zoloft*) 50 mg PO DAILY [facility] Last Admin: 09/12/17 08:57 Dose: 50 mg Thiamine HCl (Vitamin B-1 Tab*) 100 mg PO DAILY [facility] Last Admin: 09/12/17 08:57 Dose: 100 mg Throat Lozenges (Chloraseptic Elias*) 1 elias PO Q2H PRN PRN Reason: SORE THROAT Last Admin: 09/10/17 14:30 Dose: 1 elias Zolpidem Tartrate (Ambien Tab*) 10 mg PO BEDTIME PRN PRN Reason: INSOMNIA Last Admin: 09/11/17 22:49 Dose: 10 mg - Discharge Plan Discharge Plan: Outpatient Follow Up Outpatient Program: [facility]
[2017-09-12 16:09] VITALS: BP 113/69
--- NOTE | 2017-09-13 11:31 | DS ---
CC: Dr. Nuno * DISCHARGE SUMMARY: DATE OF ADMISSION: 09/08/17 DATE OF DISCHARGE: 09/12/17 PRIMARY CARE PROVIDER: Dr. Nuno. PRINCIPAL DIAGNOSES: 1. Acute alcohol intoxication. 2. Alcoholism. 3. Anxiety. DISCHARGE MEDICATIONS: 1. Vitamin B complex 1 cap p.o. daily. 2. [place]-3 fatty acid 1 cap p.o. daily. 3. Kratom 3 teaspoons p.o. b.i.d. p.r.n. pain. 4. Kava root 200 mg p.o. daily p.r.n. anxiety. 5. [place] 5/325 mg 1 tab p.o. q.6 hours p.r.n. pain. 6. Vitamin D 1000 units p.o. daily. 7. Blue sachi 0.25 teaspoon p.o. daily p.r.n. pain. 8. Hydroxyzine 50 mg p.o. q.6 hours p.r.n. anxiety (new). 9. Chlordiazepoxide 25 mg p.o. twice daily x5 days, then once daily x5 days, then done. 10. BuSpar 15 mg p.o. b.i.d. (new). 11. Sertraline 50 mg p.o. daily (new). HOSPITAL COURSE: Mr. Constantino is a 47-year-old male with a history of alcoholism who was brought to the emergency room after his noted the patient to be tangential and unable to be focused. The patient had relapsed into heavy drinking for a month prior to this admission. The patient was acutely intoxicated with alcohol at the time of his admission. The patient was admitted and started on the W[facility] protocol. The patient then admitted to severe anxiety. Chlordiazepoxide had been utilized for both alcohol withdrawal and anxiety. The patient will taper off this. For the anxiety, the patient was started on sertraline. To try to avoid benzodiazepines, he was then started on BuSpar and Atarax. The patient was evaluated by Psychiatry for his complaints of severe anxiety. The current medication regimen was agreed upon with Dr. Sharma from Psychiatry. It was recommended that the patient continue to follow up with his primary care provider as well as [facility] for further adjustments in his anxiolytic regimen. The patient did have questions about switching from Zoloft to Wellbutrin and adding gabapentin or Adderall for his symptoms. I discussed with him that I was not going to start these in the hospital, though with the help of a mental health provider and his primary care provider, perhaps these medications could be added or substituted for what he is being discharged home on. PHYSICAL EXAMINATION: On the day of discharge, the patient is awake, alert, and oriented, sitting up in bed, in no acute distress. Cardiac exam reveals a normal S1, S2 with a regular rate and rhythm. His lungs are clear. Abdomen is soft, nontender, nondistended. He is able to ambulate steadily. FOLLOWUP CONCERNS: The patient is being discharged home today, 09/12/17. ACTIVITY LEVEL: As tolerated. DIET: Regular. CONDITION ON DISCHARGE: Stable. TIME SPENT: Thirty five minutes were spent discharging this patient. [id number]/CPS #: [id number] DEONDRE
== END 2017-09-12 16:39 | disposition home or self-care (01) | DRG 775 ==
LOC: ED 02:17 → MEDTELE 04:59
PROVIDERS: ADMIT Hospitalist; ATTEND Hospitalist
DX: F10.229 Alcohol dependence with intoxication, unspecified (principal); E87.2 Acidosis; E51.2 Wernicke's encephalopathy; K70.10 Alcoholic hepatitis without ascites; F41.9 Anxiety disorder, unspecified; Y90.8 Blood alcohol level of 240 mg/100 ml or more; Z96.649 Presence of unspecified artificial hip joint; Z79.899 Other long term (current) drug therapy; Z83.3 Family history of diabetes mellitus; Z80.9 Family history of malignant neoplasm, unspecified; Z81.1 Family history of alcohol abuse and dependence; Z81.8 Family history of other mental and behavioral disorders
CPT/HCPCS: 36415; 71045; 80053; 80307; 80320; 81003; 81015; 82550; 83605; 84443; 85025; 85610; 85730; 86140; 93005; 99284; A9270-GY; G0480; G8978-GP-CH; G8979-GP-CH; G8980-GP-CH; G8987-GO-CH; G8988-GO-CH; G8989-GO-CH; J2060; J3360; J3411

== ENCOUNTER 2018-01-09 11:44 | Inpatient (IN) | payer OTHER ==
[2018-01-09] MEDS ORDERED: Thiamine IV* 100 MG, Folic Acid IV* 1 MG, Multiple Vitamin IV ADULT* 10 ML in NS 0.9% 1... IV ONE (13:09)
[2018-01-09 13:46] LABS: ABS Basophils 0 10^3/ul (0-0.2); ABS Eosinophils 0.1 10^3/ul (0-0.6); ABS Lymphocytes 1.4 10^3/ul (1.0-4.8); ABS Monocytes 0.5 10^3/ul (0-0.8); ABS Neutrophils 2.4 10^3/ul (1.5-7.7); ABS Nucleated RBC 0 10^3/ul; Eosinophil % 1.3 % (0-6); Hematocrit 44 % (42-52); Hemoglobin 15.2 g/dl (14.0-18.0); Mean Corpuscular HGB Conc 35 g/dl (31-36); Mean Corpuscular Hemoglobin 35 pg (27-31); Mean Corpuscular Volume 100 fL (80-94); Mean Platelet Volume 6.8 um3 (7.4-10.4); Nucleated Red Blood Cells % 0.1; Platelet Count 135 10^3/ul (150-450); Red Blood Count 4.39 10^6/ul (4.00-5.40); Red Cell Distribution Width 14 % (10.5-15); White Blood Count 4.4 10^3/ul (3.5-10.8)
--- NOTE | 2018-01-09 13:47 | RAD ---
HISTORY: detox COMPARISONS: None TECHNIQUE: Multiple contiguous axial CT scans were obtained of the head without intravenous contrast. FINDINGS: HEMORRHAGE/INFARCT: There is no hemorrhage or acute infarct. MASSES/SHIFT: There is no mass or shift. EXTRA-AXIAL SPACES: There are no extra-axial fluid collections. SULCI AND VENTRICLES: The sulci and ventricles are normal in size and position for the patient's stated age. CEREBRUM: There are no focal parenchymal abnormalities. BRAINSTEM: There are no focal parenchymal abnormalities. CEREBELLUM: There are no focal parenchymal abnormalities. VESSELS: The vessels are grossly normal. PARANASAL SINUSES: The paranasal sinuses are clear. ORBITS: The orbits are unremarkable. BONES AND SOFT TISSUE: No bone or soft tissue abnormalities are noted. OTHER: None IMPRESSION: NO ACUTE INTRACRANIAL PATHOLOGY.
[2018-01-09] MEDS ORDERED: chlordiazePOXIDE CAP* 25 MG PO ONE (13:55)
[2018-01-09 14:04] LABS: EGFR Non-African American 97.5 (>60)
[2018-01-09 14:13] LABS: INR 0.79 (0.77-1.02)
[2018-01-09] MEDS ORDERED: Albuterol 2.5 MG/3 ML NEB.SOL* (0.083%) INH PRN (15:11)
[2018-01-09] MEDS ORDERED: Al Hydrox/Mg Hydrox/Simet LIQ* 30 ML UDC PO PRN (15:11)
[2018-01-09] MEDS ORDERED: Thiamine IV* 100 MG/ML 2 ML VIAL IM ONE (15:17)
[2018-01-09 15:37] LABS: Urine Appearance Cloudy; Urine Blood Negative (Negative); Urine Color Yellow; Urine Ketones Trace (Negative); Urine Protein Negative (Negative); Urine Specific Gravity 1.004 (1.010-1.030); Urine Urobilinogen Negative (Negative)
--- NOTE | 2018-01-09 16:19 | ED ---
Substance Abuse/Use - HPI Summary HPI Summary: Patient is a 47-year-old alcoholic male drinking approximately 1 case of beer per day times months to years presenting to the ED with alcohol withdrawal symptoms. He states he would like to stop drinking, however he is endorsing shaking, chills, nausea, sweats and insomnia. He states he has been hospitalized previously for detox request and was kept in the hospital as the hospital was inferior of patient having seizures. He states he had one beer just [employer], however prior to that has been approximately 48 hours as he had a binge drinking session on Monday evening. He states when alcohol is not in his system he begins to shake in his bilateral upper extremities and endorses some palpitations. Denies any fevers or recent illness. Denies any drug use. Patient is a smoker. - History Of Current Complaint Chief Complaint: EDDetoxRequest Stated Complaint: DETOXING/ALCOHOL WITHDRAWLS Time Seen by Provider: 01/09/18 13:07 Hx Obtained From: Patient Ingestion History: Type/Name Of Drug Overdose Characteristics: Oral Timing Of Abuse: Daily, Binge Use Severity Initially: Severe Severity Currently: Severe Character: Anxious Aggravating Factor(s): Nothing Alleviating Factor(s): Nothing Associated Signs And Symptoms: Diaphoretic, Tremulous, Agitated, Nausea - Risk Factor(s) Completed Suicide Risk Factors: Male, White Armenian - Allergies/Home Medications Allergies/Adverse Reactions: Allergies Allergy/AdvReac Type Severity Reaction Status Date / Time No Known Allergies Allergy Verified 01/09/18 12:08 Home Medications: Home Medications LORazepam TAB(*) [Ativan 1 MG TAB (*)] 1 mg PO BID 01/09/18 [History Confirmed 01/09/18] Lisinopril TAB* [Prinivil TAB*] 10 mg PO DAILY 01/09/18 [History Confirmed 01/09] Sertraline* [Zoloft*] 50 mg PO QAM 01/09/18 [History Confirmed 01/09/18] hydrOXYzine HCL TAB* [Atarax TAB 50 MG *] 50 mg PO TID PRN 01/09/18 [History Confirmed 01/09/18] PMH/Surg Hx/FS Hx/Imm Hx Previously Healthy: Yes Endocrine/Hematology History: Denies: Hx Diabetes - HAD ALCOHOL INDUCED DIABETES Cardiovascular History: Denies: Hx Hypertension, Hx Pacemaker/ICD Respiratory History: Denies: Hx Asthma History: Reports: Hx Dialysis - ALCOHOL INDUCED 2011, Hx Renal Disease - ALCOHOL INDUCED 2011 Musculoskeletal History: Denies: Hx Rheumatoid Arthritis, Hx Osteoporosis Sensory History: Reports: Hx Contacts or Glasses - GLASSES Denies: Hx Hearing Aid Opthamlomology History: Reports: Hx Contacts or Glasses - GLASSES Neurological History: Reports: Hx Migraine - 2-3 TIMES/ MONTH- STRESS RELATED Psychiatric History: Reports: Hx Anxiety - MANAGED WITH HERBS, Hx Substance Abuse - alcohol Denies: Hx Panic Disorder - Surgical History Surgery Procedure, Year, and Place: SINUS SURGERY A CHILD- AGE 4- ;. FISTULA FOR DIALYSIS THAT HAS BEEN REMOVED 2011 ;. LEFT HIP REPLACEMENT Hx Anesthesia Reactions: No - Immunization History Date of Tetanus Vaccine: unk Date of Influenza Vaccine: unk Hx Pertussis Vaccination: No Immunizations Up to Date: Yes Infectious Disease History: No Infectious Disease History: Reports: Hx Hepatitis - alcoholic Denies: Traveled Outside the [place] in Last 30 Days - Family History Known Family History: Positive: Hypertension - mother - Social History Occupation: Unemployed Lives: Alone Alcohol Use: Daily Alcohol Amount: intermittent 1 year, constantly 1 month Hx Substance Use: No Substance Use Type: Reports: None Hx Tobacco Use: No Smoking Status (MU): Never Smoked Tobacco Review of Systems Positive: Skin Diaphoresis. Negative: Fever, Chills, Fatigue Negative: Palpitations, Chest Pain Negative: Shortness Of Breath Positive: Nausea. Negative: Abdominal Pain, Vomiting, Diarrhea Positive: Arthralgia. Negative: Myalgia Negative: Rash, Bruising Positive: Other - tremors All Other Systems Reviewed And Are Negative: Yes Physical Exam Triage Information Reviewed: Yes Vital Signs On Initial Exam: Initial Vitals Temp Pulse Resp BP Pulse Ox 97.6 F 138 20 149/105 97 01/09/18 12:05 01/09/18 12:05 01/09/18 12:05 01/09/18 12:05 01/09/18 12:05 Vital Signs Reviewed: Yes Appearance: Positive: Ill-Appearing, Thin, Cachectic Skin: Positive: Warm, Skin Color Reflects Adequate Perfusion Neck: Positive: Supple, No Lymphadenopathy Respiratory/Lung Sounds: Positive: Clear to Auscultation, Breath Sounds Present Cardiovascular: Positive: Tachycardia Abdomen Description: Positive: Nontender, Soft Bowel Sounds: Positive: Present Musculoskeletal: Positive: Strength/ROM Intact Neurological: Positive: Reflexes Intact, Speech Normal, Other - bilateral upper extremity tremors. Negative: Facial Droop, Ataxic Gait Psychiatric: Positive: Normal, Affect/Mood Appropriate AVPU Assessment: Alert Diagnostics - Vital Signs Vital Signs Temp Pulse Resp BP Pulse Ox 01/09/18 14:10 18 01/09/18 14:00 28 01/09/18 13:14 125 22 134/104 94 01/09/18 13:10 129 97 01/09/18 12:05 97.6 F 138 20 149/105 97 - Laboratory Lab Results: Lab Results 01/09/18 01/09/18 01/09/18 Range/Units 13:38 13:38 13:38 WBC 4.4 (3.5-10.8) 10^3/ul RBC 4.39 (4.00-5.40) 10^6/ul Hgb 15.2 (14.0-18.0) g/dl Hct 44 (42-52) % MCV 100 H (80-94) fL MCH 35 H (27-31) pg MCHC 35 (31-36) g/dl RDW 14 (10.5-15) % Plt Count 135 L (150-450) 10^3/ul MPV 6.8 L (7.4-10.4) um3 Neut % (Auto) 54.1 (38-83) % Lymph % (Auto) 33.0 (25-47) % Bay % (Auto) 10.9 H (0-7) % Eos % (Auto) 1.3 (0-6) % Baso % (Auto) 0.7 (0-2) % Absolute Neuts (auto) 2.4 (1.5-7.7) 10^3/ul Absolute Lymphs (auto) 1.4 (1.0-4.8) 10^3/ul Absolute Monos (auto) 0.5 (0-0.8) 10^3/ul Absolute Eos (auto) 0.1 (0-0.6) 10^3/ul Absolute Basos (auto) 0 (0-0.2) 10^3/ul Absolute Nucleated RBC 0 10^3/ul Nucleated RBC % 0.1 INR (Anticoag Therapy) (0.77-1.02) Sodium 133 L (135-145) mmol/L Potassium 4.0 (3.5-5.0) mmol/L Chloride 95 L (101-111) mmol/L Carbon Dioxide 25 (22-32) mmol/L Anion Gap 13 H (2-11) mmol/L BUN 14 (6-24) mg/dL Creatinine 0.84 (0.67-1.17) mg/dL Est GFR ( Amer) 118.0 (>60) Est GFR (Non-Af Amer) 97.5 (>60) BUN/Creatinine Ratio 16.7 (8-20) Glucose 78 (70-100) mg/dL Lactic Acid 1.6 (0.5-2.0) mmol/L Calcium 9.3 (8.6-10.3) mg/dL Magnesium 1.9 (1.9-2.7) mg/dL Total Bilirubin 1.20 H (0.2-1.0) mg/dL AST 125 H (13-39) U/L ALT 134 H (7-52) U/L Alkaline Phosphatase 111 H (34-104) U/L Total Creatine Kinase 70 (10-223) U/L Troponin I 0.03 (<0.04) ng/mL Total Protein 6.8 (6.4-8.9) g/dL Albumin 4.1 (3.2-5.2) g/dL Globulin 2.7 (2-4) g/dL Albumin/Globulin Ratio 1.5 (1-3) Urine Color Urine Appearance Urine pH (5-9) Ur Specific [place] (1.010-1.030) Urine Protein (Negative) Urine Ketones (Negative) Urine Blood (Negative) Urine Nitrate (Negative) Urine Bilirubin (Negative) Urine Urobilinogen (Negative) Ur Leukocyte Esterase (Negative) Urine Glucose (Negative) Salicylates < 2.50 (<30) mg/dL Urine Opiates Screen (None Detect) Acetaminophen < 15 mcg/mL Ur Barbiturates Screen (None Detect) Ur Phencyclidine Scrn (None Detect) Ur Amphetamines Screen (None Detect) U Benzodiazepines Scrn (None Detect) Urine Cocaine Screen (None Detect) U Cannabinoids Screen (None Detect) Serum Alcohol < 10 (<10) mg/dL 01/09/18 01/09/18 01/09/18 Range/Units 13:38 15:16 15:16 WBC (3.5-10.8) 10^3/ul RBC (4.00-5.40) 10^6/ul Hgb (14.0-18.0) g/dl Hct (42-52) % MCV (80-94) fL MCH (27-31) pg MCHC (31-36) g/dl RDW (10.5-15) % Plt Count (150-450) 10^3/ul MPV (7.4-10.4) um3 Neut % (Auto) (38-83) % Lymph % (Auto) (25-47) % Bay % (Auto) (0-7) % Eos % (Auto) (0-6) % Baso % (Auto) (0-2) % Absolute Neuts (auto) (1.5-7.7) 10^3/ul Absolute Lymphs (auto) (1.0-4.8) 10^3/ul Absolute Monos (auto) (0-0.8) 10^3/ul Absolute Eos (auto) (0-0.6) 10^3/ul Absolute Basos (auto) (0-0.2) 10^3/ul Absolute Nucleated RBC 10^3/ul Nucleated RBC % INR (Anticoag Therapy) 0.79 (0.77-1.02) Sodium (135-145) mmol/L Potassium (3.5-5.0) mmol/L Chloride (101-111) mmol/L Carbon Dioxide (22-32) mmol/L Anion Gap (2-11) mmol/L BUN (6-24) mg/dL Creatinine (0.67-1.17) mg/dL Est GFR ( Amer) (>60) Est GFR (Non-Af Amer) (>60) BUN/Creatinine Ratio (8-20) Glucose (70-100) mg/dL Lactic Acid (0.5-2.0) mmol/L Calcium (8.6-10.3) mg/dL Magnesium (1.9-2.7) mg/dL Total Bilirubin (0.2-1.0) mg/dL AST (13-39) U/L ALT (7-52) U/L Alkaline Phosphatase (34-104) U/L Total Creatine Kinase (10-223) U/L Troponin I (<0.04) ng/mL Total Protein (6.4-8.9) g/dL Albumin (3.2-5.2) g/dL Globulin (2-4) g/dL Albumin/Globulin Ratio (1-3) Urine Color Yellow Urine Appearance Cloudy Urine pH 6.0 (5-9) Ur Specific [place] 1.004 L (1.010-1.030) Urine Protein Negative (Negative) Urine Ketones Trace A (Negative) Urine Blood Negative (Negative) Urine Nitrate Negative (Negative) Urine Bilirubin Negative (Negative) Urine Urobilinogen Negative (Negative) Ur Leukocyte Esterase Negative (Negative) Urine Glucose Negative (Negative) Salicylates (<30) mg/dL Urine Opiates Screen None detected (None Detect) Acetaminophen mcg/mL Ur Barbiturates Screen None detected (None Detect) Ur Phencyclidine Scrn None detected (None Detect) Ur Amphetamines Screen None detected (None Detect) U Benzodiazepines Scrn None detected (None Detect) Urine Cocaine Screen None detected (None Detect) U Cannabinoids Screen None detected (None Detect) Serum Alcohol (<10) mg/dL Result Diagrams: 01/09/18 13:38 01/09/18 13:38 Lab Statement: Any lab studies that have been ordered have been reviewed, and results considered in the medical decision making process. Course/Dx - Course Course Of Treatment: Patient is evaluated for detox request. On physical examination he appears slightly diaphoretic and has bilateral upper tremors. He is tachycardia at 110, however other vital signs are stable. I'm concerned about the fact that he is approximate 48 hours after last alcohol use, I am concerned over seizures and other detox symptoms. Denies any hallucinations, visual or auditory at this time. He is given 1 banana bag and began with 50 of Librium with some amount of relief. Discussed the case with Dr. Bhardwaj, hospitalist, who agrees to admit for alcohol detox withdrawal symptoms. [facility] protocol is 10. Endorses a history of severe alcohol abuse as well as hypertension. He states his been hospitalized in the past for detox. - Diagnoses Differential Diagnosis/HQI/PQRI: Positive: Alcohol Abuse, Anxiety Provider Diagnoses: Alcohol abuse, Desire for detoxification - Physician Notifications Discussed Care Of Patient With: Herlinda Bhardwaj Discharge - Sign-Out/Discharge Documenting (check all that apply): Patient Departure - Discharge Plan Condition: Fair Disposition: ADMITTED TO [facility] Referrals: Damián Nuno MD [Primary Care Provider] - - Billing Disposition and Condition Condition: FAIR Disposition: Admitted to [facility]
[2018-01-09] MEDS: LORazepam TAB(*) 1 MG PO SCH ×3 (18:12→22:08)
[2018-01-09] MEDS: NS 0.9% 1000 ML* 1,000 ML IV SCH (18:13)
[2018-01-09] MEDS: Acetaminophen TAB* 325 MG PO PRN (20:03)
[2018-01-09] MEDS: Ondansetron INJ* 2 MG/ML VIAL IV PRN (20:04)
--- NOTE | 2018-01-09 21:38 | HP ---
CC: Dr. Nuno * ADMISSION HISTORY AND PHYSICAL: DATE OF ADMISSION: 01/09/18 ADMITTING HOSPITALIST: Dr. Herlinda Davis.* (DICTATED BY LUCA CLARKE) PRIMARY CARE PROVIDER: Noah Nuno MD CHIEF COMPLAINT: Alcohol withdrawal symptoms and anxiety. HISTORY OF PRESENT ILLNESS: Mr. Constantino is a 47-year-old gentleman, who is generally a poor historian with history of alcoholism and hypertension, who presented to the emergency room today requesting alcohol detox. The patient has longstanding history of alcohol abuse, admitted most recently back in September of this year with alcohol intoxication and relapsed severe alcoholism. He reports that in the past few weeks, he has been generally consuming about 20 to 24 drinks a day. He subsequently stopped drinking, "cold turkey" over past weekend, and started to notice some shaking tremors of his upper extremity as well as an anxiety and agitation. He denied any history of seizure or any seizure activity in the past couple of days. He denied any chest pain, palpitation, shortness of breath, headache, dizziness, or any other associated symptoms. He also has history of alcoholic hepatitis for which he was admitted in [place] years ago when he was extremely jaundiced. He denies any jaundice or changes in the color of stool or urine. No abdominal pain, nausea, vomiting , or changes in the bowel habits. In the emergency room today, he was evaluated and had laboratory workup that revealed normal CBC with the exception of slightly decreased platelet count at 135. His LFTs are essentially unchanged from prior admission and his toxicology report showed no evidence of serum alcohol, salicylates, or acetaminophen. He also had a brain CT that revealed no acute intracranial process. He received a dose of Librium in the emergency room and he is relatively comfortable; however, continued to be anxious about having withdrawal symptoms and we were asked to consider the patient for admission and social media executive consultation regarding his alcohol abuse and potential withdrawal of symptoms. PAST MEDICAL HISTORY: As mentioned above, significant for: 1. Alcoholism. 2. Alcoholic hepatitis. 3. Anxiety and depression. 4. Hypertension. PAST SURGICAL HISTORY: Significant for left hip replacement in the past. CURRENT MEDICATIONS: His medications at home include: 1. Atarax 50 mg p.o. t.i.d. as needed for anxiety. 2. Lisinopril 10 mg p.o. daily. 3. Ativan 1 mg p.o. b.i.d. as needed for anxiety. 4. Zoloft 50 mg p.o. daily. ALLERGIES: He has no known drug allergies. FAMILY HISTORY: Reviewed and noncontributory. SOCIAL HISTORY: The patient is single. He lives alone. 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 He denies smoking or illicit drug use. He listed his mom as the healthcare proxy carrier and he wishes to be a full code. REVIEW OF SYSTEMS: See HPI. Otherwise, 12-point review of systems was examined and they were essentially negative. PHYSICAL EXAMINATION GENERAL: He is a pleasant, healthy appearing, middle-aged gentleman, in no acute distress or discomfort at the time of admission. VITAL SIGNS: Revealed temperature of 97.6, pulse of 110, respirations of 18 with O2 sat of 94% on room air, and blood pressure of 134/104. HEENT: Head is normocephalic, atraumatic. Sclerae anicteric. EOMs intact. Oropharynx is pink and moist. NECK: Supple. Trachea midline. No cervical adenopathy, thyromegaly, or JVD. LUNGS: Clear to auscultation bilaterally. HEART: Rapid rate, normal rhythm. No rubs, murmurs, or gallops. BACK: With normal curvature. No CVA tenderness. ABDOMEN: Soft, nontender, and nondistended. No hernias, masses, or hepatosplenomegaly. RECTAL: Exam deferred at this time. EXTREMITIES: Without cyanosis, clubbing, or edema. NEUROLOGIC: He is awake, alert, and oriented x3. There are very mild stationary tremors noted to the upper extremities. Handgrip is equal bilaterally. Sensation is intact throughout and cranial nerves II through XII grossly intact. LABORATORY DATA: CBC with white count of 4000, hemoglobin of 15.2, hematocrit of 44, and platelets of 135. INR is 0.79. Chemistry panel with sodium of 133, potassium 4.0, chloride 95, CO2 25, BUN of 14, creatinine of 0.8. LFTs appear to be at baseline with total bilirubin of 1.2, AST 125, ALT 134, and alk phos of 111. His lactic acid 1.6 and his magnesium is 1.9. ACCESSORY DIAGNOSTIC DATA: CT scan of the brain revealed no evidence of acute intracranial pathology. IMPRESSION AND PLAN: A 47-year-old gentleman with longstanding history of alcohol abuse, hypertension, and anxiety and depression, who presented to the emergency room with active withdrawal symptoms, who will be admitted under hospitalist services for the followin. Alcohol withdrawal. The patient will be admitted for close observation in the telemetry unit. [facility] protocol has been ordered and his vitamins and supplements including thiamine and folic acid will be supplied. He is currently getting a banana bag intravenously in the emergency room and appears comfortable. He is slightly tachycardic, which is consistent with his baseline based on prior admission related to his alcohol abuse. office services specialist consultation has been ordered and the patient exhibited desire to have an outpatient alcohol rehab facility to follow up with and we will arrange that with social media executive. 2. Hypertension. I will continue his home dose of lisinopril 10 mg daily. 3. Anxiety and depression. We will continue his Zoloft, and Ativan is ordered per [facility] protocol as well. 4. DVT prophylaxis. He is a moderate risk and will utilize SCDs for the time being. 5. Code status. He wishes to be a full code. 6. Disposition. Admit to telemetry for close observation, seizure precaution, and WAM protocol for acute withdrawal symptoms awaiting social media executive consultation for outpatient plans to avoid relapse of alcohol abuse. TIME SPENT: Approximately 60 minutes spent admitting this patient for which greater than 50% of this time on taking history and performing physical exam. I went on and discussed the case with my attending, who agreed to plan of care and will follow him up accordingly. LUCA CLARKE [id number]/CPS #: [id number] [place]
[2018-01-10] MEDS: LORazepam TAB(*) 1 MG PO SCH ×11 (00:14→23:47)
[2018-01-10] MEDS: NS 0.9% 1000 ML* 1,000 ML IV SCH (03:05)
[2018-01-10 06:10] LABS: ABS Basophils 0 10^3/ul (0-0.2); ABS Eosinophils 0.1 10^3/ul (0-0.6); ABS Lymphocytes 1.6 10^3/ul (1.0-4.8); ABS Monocytes 0.3 10^3/ul (0-0.8); ABS Neutrophils 1.4 10^3/ul (1.5-7.7); ABS Nucleated RBC 0 10^3/ul; Eosinophil % 2.6 % (0-6); Hematocrit 35 % (42-52); Lymphocyte % 47.1 % (25-47); Mean Corpuscular HGB Conc 34 g/dl (31-36); Mean Corpuscular Hemoglobin 35 pg (27-31); Mean Corpuscular Volume 101 fL (80-94); Mean Platelet Volume 7.3 um3 (7.4-10.4); Nucleated Red Blood Cells % 0; Platelet Count 112 10^3/ul (150-450); Red Blood Count 3.48 10^6/ul (4.00-5.40); Red Cell Distribution Width 14 % (10.5-15); White Blood Count 3.4 10^3/ul (3.5-10.8)
[2018-01-10 06:31] LABS: EGFR Non-African American 107.8 (>60)
[2018-01-10] MEDS: Sertraline* 50 MG TAB PO SCH (08:54)
[2018-01-10] MEDS: Lisinopril TAB* 10 MG PO SCH (08:54)
[2018-01-10] MEDS: Thiamine TAB* 100 MG TAB PO SCH (08:54)
[2018-01-10] MEDS: Acetaminophen TAB* 325 MG PO PRN (08:54)
[2018-01-10] MEDS: Multivitamins/Minerals TAB PO SCH (08:54)
[2018-01-10] MEDS: Folic Acid TAB* 1 MG PO SCH (08:54)
--- NOTE | 2018-01-10 11:00 | PN ---
Subjective Date of Service: 01/10/18 Interval History: Mr. Constantino reports feeling better this morning compared to yesterday. He feels as though the librium he received in the ED was very helpful. His main complaint is "racing thoughts" though he has been able to sleep well. He denies any N/V or hallucinations. Was having some mild RUQ pain which is now resolved after taking tylenol. Mild tremors. He denies ever having a seizure while withdrawing. He has not been taking his sertraline at home as he was hesitant d/ t side effects. He is interested in entering a rehab. He reports his friend has been helping him to try to find a facility. He also has been a patient of [facility] recently. He is open to having hospital social workers help to find him a facility. He feels as though he may have been self-medicating with alcohol for his depression. Family History: Unchanged from Admission Social History: Unchanged from Admission Past Medical History: Unchanged from Admission Objective Active Medications: Acetaminophen (Tylenol Tab*) 975 mg PO Q6H PRN Al Hydrox/Mg Hydrox/Simethicone (Maalox Plus*) 30 ml PO Q6H PRN Albuterol (Ventolin 2.5 Mg/3 Ml Neb.Nydia*) 2.5 mg INH [id number] AWAKE PRN Folic Acid (Folvite Tab*) 1 mg PO DAILY RUSTAM Ibuprofen (Motrin Tab*) 600 mg PO Q6H PRN Lisinopril (Prinivil Tab*) 10 mg PO DAILY RUSTAM Lorazepam (Ativan Tab(*)) 0 - 6 mg PO .PER [facility] PROTOCOL [facility]; Protocol Multivitamins/Minerals (Theragran/Minerals Tab*) 1 tab PO DAILY [facility] Ondansetron HCl (Zofran Inj*) 4 mg IV Q4H PRN Sertraline HCl (Zoloft*) 50 mg PO QAM [facility] Thiamine HCl (Vitamin B-1 Tab*) 100 mg PO DAILY [facility] Vital Signs - 8 hr 01/10/18 01/10/18 01/10/18 04:06 04:10 04:11 Temperature 97.7 F Pulse Rate 82 Respiratory 18 18 18 Rate Blood Pressure 125/79 (mmHg) O2 Sat by Pulse 100 Oximetry 10/10/18 10/10/18 10/10/18 06:05 06:08 06:10 Temperature 98.0 F Pulse Rate 82 Respiratory 20 20 20 Rate Blood Pressure 117/76 (mmHg) O2 Sat by Pulse 99 Oximetry 01/10/18 01/10/18 01/10/18 08:09 08:53 08:58 Temperature 98.4 F Pulse Rate 88 Respiratory 18 18 18 Rate Blood Pressure 127/82 (mmHg) O2 Sat by Pulse 99 Oximetry Oxygen Devices in Use Now: None Appearance: Middle-aged unkempt male laying in bed in no acute distress. Flat affect. Eyes: No Scleral Icterus, PERRLA Ears/Nose/Mouth/Throat: NL Teeth, Lips, Gums, Mucous Membranes Moist Neck: NL Appearance and Movements; NL JVP, Trachea Midline Respiratory: Symmetrical Chest Expansion and Respiratory Effort, Clear to Auscultation Cardiovascular: NL Sounds; No Murmurs; No JVD, RRR, No Edema Abdominal: NL Sounds; No Tenderness; No Distention, - - Liver edge palpable Extremities: No Edema Skin: No Rash or Ulcers Neurological: Alert and Oriented x 3, NL Sensation, - - Mild tremors Lines/Tubes/Other Access: Clean, Dry and Intact Peripheral IV Nutrition: Taking PO's Result Diagrams: 01/10/18 06:01 01/10/18 06:01 Assess/Plan/Problems-Billing Assessment: Mr. Constantino is a 47yo male with PMH of ETOH abuse, alcoholic hepatitis, anxiety, depression, and HTN who presented to the ED requesting alcohol detox and was admitted on [facility] protocol. - Patient Problems (1) Alcohol withdrawal Current Visit: Yes Status: Acute Priority: High Code(s): F10.239 - ALCOHOL DEPENDENCE WITH WITHDRAWAL, UNSPECIFIED SNOMED Code(s): 946367212 Comment: - Moderate symptoms at this point - Social work consult for rehab - Continue [facility] protocol and lorazepam - Continue MV, thiamine, folic acid (2) Elevated LFTs Current Visit: Yes Status: Acute Priority: High Code(s): R94.5 - ABNORMAL RESULTS OF LIVER FUNCTION STUDIES SNOMED Code(s): 691974628 Comment: - Hx of alcoholic hepatitis - Continue to trend LFTs - Check liver US and hepatitis panel (3) HTN (hypertension) Current Visit: Yes Status: Chronic Priority: Medium Code(s): I10 - ESSENTIAL (PRIMARY) HYPERTENSION SNOMED Code(s): 32318437 Comment: - Normotensive - Continue lisinopril (4) Depression Current Visit: Yes Status: Chronic Priority: High Code(s): F32.9 - MAJOR DEPRESSIVE DISORDER, SINGLE EPISODE, UNSPECIFIED SNOMED Code(s): 36302888 Comment: - Continue sertraline (5) Anxiety Current Visit: Yes Status: Chronic Priority: High Code(s): F41.9 - ANXIETY DISORDER, UNSPECIFIED SNOMED Code(s): 46647229 Comment: - Continue lorazepam per [facility] protocol (6) Full code status Current Visit: Yes Status: Acute Priority: High Code(s): Z78.9 - OTHER SPECIFIED HEALTH STATUS SNOMED Code(s): 602338145 (7) DVT prophylaxis Current Visit: Yes Status: Acute Priority: High Code(s): [id number] - SNOMED Code(s): 987746222 Comment: - SCDs Status and Disposition: Inpatient for acute withdrawal. Needs assistance finding rehab facility.
[2018-01-10] MEDS: Ibuprofen TAB* 600 MG PO PRN ×2 (11:05→20:00)
[2018-01-11] MEDS: LORazepam TAB(*) 1 MG PO SCH ×7 (01:57→23:06)
[2018-01-11 06:37] LABS: ABS Basophils 0 10^3/ul (0-0.2); ABS Eosinophils 0.1 10^3/ul (0-0.6); ABS Lymphocytes 1.4 10^3/ul (1.0-4.8); ABS Monocytes 0.3 10^3/ul (0-0.8); ABS Neutrophils 1.2 10^3/ul (1.5-7.7); ABS Nucleated RBC 0 10^3/ul; Eosinophil % 4.1 % (0-6); Hematocrit 35 % (42-52); Hemoglobin 12.2 g/dl (14.0-18.0); Lymphocyte % 45.6 % (25-47); Mean Corpuscular HGB Conc 35 g/dl (31-36); Mean Corpuscular Hemoglobin 35 pg (27-31); Mean Corpuscular Volume 101 fL (80-94); Mean Platelet Volume 7.1 um3 (7.4-10.4); Nucleated Red Blood Cells % 0.1; Platelet Count 104 10^3/ul (150-450); Red Blood Count 3.46 10^6/ul (4.00-5.40); Red Cell Distribution Width 13 % (10.5-15)
[2018-01-11 07:00] LABS: EGFR Non-African American 118.4 (>60)
[2018-01-11] MEDS: Sertraline* 50 MG TAB PO SCH (08:24)
[2018-01-11] MEDS: Folic Acid TAB* 1 MG PO SCH (08:24)
[2018-01-11] MEDS: Thiamine TAB* 100 MG TAB PO SCH (08:24)
[2018-01-11] MEDS: Lisinopril TAB* 10 MG PO SCH (08:24)
[2018-01-11] MEDS: Multivitamins/Minerals TAB PO SCH (08:24)
--- NOTE | 2018-01-11 12:56 | RAD ---
HISTORY: elevated LFTs COMPARISONS: None TECHNIQUE: Multiple transverse and longitudinal ultrasound images were obtained of the right upper quadrant of the abdomen using grayscale and color Doppler imaging. Images are submitted for review on January 11, 2018 FINDINGS: LIVER: The liver is diffusely echogenic and coarse in echotexture, with decreased acoustic transmission. The liver is otherwise normal in shape, size, and contour. There is normal hepatopedal flow of the portal vein on Doppler imaging. BILIARY TREE: There is no intrahepatic or extrahepatic biliary dilatation. The common duct measures 0.5 cm. GALLBLADDER: The gallbladder is well-visualized. There is no cholelithiasis, gallbladder wall thickening, pericholecystic fluid, or sonographic Luke sign. PANCREAS: The head of the pancreas is unremarkable. The tail of the pancreas is not well visualized secondary to overlying bowel gas. RIGHT KIDNEY: The right kidney is normal in shape, size, contour, and echogenicity. There is no hydronephrosis or nephrolithiasis. The right kidney measures 11.5 x 5.3 x 5.4 cm. AORTA AND IVC: The aorta and IVC are unremarkable. FLUID: There are no pleural effusions. There is no free fluid within the hepatorenal recess. OTHER FINDINGS: None. IMPRESSION: FATTY INFILTRATION OF THE LIVER
--- NOTE | 2018-01-11 21:24 | PN ---
Subjective Date of Service: 01/11/18 Interval History: Patient examined at the bedside, patient reports that he feels like there are people in the room watching him but he reports that he knows that they are not there. states that he hears voices but they are always in his head. reports mild tremors. Denies chest pain , headache or dizziness. denies abd pain n/v/ d. Family History: Unchanged from Admission Social History: Unchanged from Admission Past Medical History: Unchanged from Admission Objective Active Medications: Acetaminophen (Tylenol Tab*) 975 mg PO Q6H PRN PRN Reason: FEVER/PAIN Last Admin: 01/10/18 08:54 Dose: 975 mg Al Hydrox/Mg Hydrox/Simethicone (Maalox Plus*) 30 ml PO Q6H PRN PRN Reason: INDIGESTION Albuterol (Ventolin 2.5 Mg/3 Ml Neb.Nydia*) 2.5 mg INH [id number] AWAKE PRN PRN Reason: sob/wheezing Folic Acid (Folvite Tab*) 1 mg PO DAILY [facility] Last Admin: 01/11/18 08:24 Dose: 1 mg Ibuprofen (Motrin Tab*) 600 mg PO Q6H PRN PRN Reason: PAIN Last Admin: 01/10/18 20:00 Dose: 600 mg Lisinopril (Prinivil Tab*) 10 mg PO DAILY [facility] Last Admin: 01/11/18 08:24 Dose: 10 mg Lorazepam (Ativan Tab(*)) 0 - 6 mg PO .PER [facility] PROTOCOL [facility]; Protocol Last Admin: 01/11/18 20:23 Dose: 2 mg Multivitamins/Minerals (Theragran/Minerals Tab*) 1 tab PO DAILY [facility] Last Admin: 01/11/18 08:24 Dose: 1 tab Ondansetron HCl (Zofran Inj*) 4 mg IV Q4H PRN PRN Reason: NAUSEA/VOMITING Last Admin: 01/09/18 20:04 Dose: 4 mg Sertraline HCl (Zoloft*) 50 mg PO QAM [facility] Last Admin: 01/11/18 08:24 Dose: 50 mg Thiamine HCl (Vitamin B-1 Tab*) 100 mg PO DAILY [facility] Last Admin: 01/11/18 08:24 Dose: 100 mg Vital Signs - 8 hr 01/11/18 01/11/18 01/11/18 14:19 14:22 16:06 Temperature 97.9 F 98.4 F Pulse Rate 111 96 Respiratory 18 18 22 Rate Blood Pressure 140/92 144/97 (mmHg) O2 Sat by Pulse 99 98 Oximetry 01/11/18 01/11/18 01/11/18 17:21 17:27 17:31 Temperature 97.6 F Pulse Rate 96 Respiratory 18 16 16 Rate Blood Pressure 143/102 (mmHg) O2 Sat by Pulse 99 Oximetry 01/11/18 01/11/18 01/11/18 18:07 20:00 20:06 Temperature 97.7 F Pulse Rate 98 87 Respiratory 18 20 18 Rate Blood Pressure 140/89 136/92 (mmHg) O2 Sat by Pulse 99 100 Oximetry 01/11/18 01/11/18 20:21 20:23 Temperature Pulse Rate Respiratory 20 20 Rate Blood Pressure (mmHg) O2 Sat by Pulse Oximetry Oxygen Devices in Use Now: None Appearance: alert, upper ext with tremors, no acute distress Eyes: No Scleral Icterus Ears/Nose/Mouth/Throat: Clear Oropharnyx, Mucous Membranes Moist Neck: NL Appearance and Movements; NL JVP, Trachea Midline Respiratory: Symmetrical Chest Expansion and Respiratory Effort, Clear to Auscultation Cardiovascular: NL Sounds; No Murmurs; No JVD, RRR, No Edema Abdominal: NL Sounds; No Tenderness; No Distention Extremities: No Edema, No Clubbing, Cyanosis Skin: No Rash or Ulcers Neurological: Alert and Oriented x 3, - - upper ext with moderate tremors Nutrition: Taking PO's Result Diagrams: 01/11/18 06:15 01/11/18 06:15 Additional Lab and Data: Lab Results 01/09/18 01/09/18 01/09/18 Range/Units 13:38 13:38 13:38 WBC 4.4 (3.5-10.8) 10^3/ul RBC 4.39 (4.00-5.40) 10^6/ul Hgb 15.2 (14.0-18.0) g/dl Hct 44 (42-52) % MCV 100 H (80-94) fL MCH 35 H (27-31) pg MCHC 35 (31-36) g/dl RDW 14 (10.5-15) % Plt Count 135 L (150-450) 10^3/ul MPV 6.8 L (7.4-10.4) um3 Neut % (Auto) 54.1 (38-83) % Lymph % (Auto) 33.0 (25-47) % [place] % (Auto) 10.9 H (0-7) % Eos % (Auto) 1.3 (0-6) % Baso % (Auto) 0.7 (0-2) % Absolute Neuts (auto) 2.4 (1.5-7.7) 10^3/ul Absolute Lymphs (auto) 1.4 (1.0-4.8) 10^3/ul Absolute Monos (auto) 0.5 (0-0.8) 10^3/ul Absolute Eos (auto) 0.1 (0-0.6) 10^3/ul Absolute Basos (auto) 0 (0-0.2) 10^3/ul Absolute Nucleated RBC 0 10^3/ul Nucleated RBC % 0.1 INR (Anticoag Therapy) (0.77-1.02) Sodium 133 L (135-145) mmol/L Potassium 4.0 (3.5-5.0) mmol/L Chloride 95 L (101-111) mmol/L Carbon Dioxide 25 (22-32) mmol/L Anion Gap 13 H (2-11) mmol/L BUN 14 (6-24) mg/dL Creatinine 0.84 (0.67-1.17) mg/dL Est GFR ( Amer) 118.0 (>60) Est GFR (Non-Af Amer) 97.5 (>60) BUN/Creatinine Ratio 16.7 (8-20) Glucose 78 (70-100) mg/dL Lactic Acid 1.6 (0.5-2.0) mmol/L Calcium 9.3 (8.6-10.3) mg/dL Magnesium 1.9 (1.9-2.7) mg/dL Total Bilirubin 1.20 H (0.2-1.0) mg/dL AST 125 H (13-39) U/L ALT 134 H (7-52) U/L Alkaline Phosphatase 111 H (34-104) U/L Total Creatine Kinase 70 (10-223) U/L Troponin I 0.03 (<0.04) ng/mL Total Protein 6.8 (6.4-8.9) g/dL Albumin 4.1 (3.2-5.2) g/dL Globulin 2.7 (2-4) g/dL Albumin/Globulin Ratio 1.5 (1-3) Urine Color Urine Appearance Urine pH (5-9) Ur Specific [place] (1.010-1.030) Urine Protein (Negative) Urine Ketones (Negative) Urine Blood (Negative) Urine Nitrate (Negative) Urine Bilirubin (Negative) Urine Urobilinogen (Negative) Ur Leukocyte Esterase (Negative) Urine Glucose (Negative) Salicylates < 2.50 (<30) mg/dL Urine Opiates Screen (None Detect) Acetaminophen < 15 mcg/mL Ur Barbiturates Screen (None Detect) Ur Phencyclidine Scrn (None Detect) Ur Amphetamines Screen (None Detect) U Benzodiazepines Scrn (None Detect) Urine Cocaine Screen (None Detect) U Cannabinoids Screen (None Detect) Serum Alcohol < 10 (<10) mg/dL 01/09/18 01/09/18 01/09/18 Range/Units 13:38 15:16 15:16 WBC (3.5-10.8) 10^3/ul RBC (4.00-5.40) 10^6/ul Hgb (14.0-18.0) g/dl Hct (42-52) % MCV (80-94) fL MCH (27-31) pg MCHC (31-36) g/dl RDW (10.5-15) % Plt Count (150-450) 10^3/ul MPV (7.4-10.4) um3 Neut % (Auto) (38-83) % Lymph % (Auto) (25-47) % [place] % (Auto) (0-7) % Eos % (Auto) (0-6) % Baso % (Auto) (0-2) % Absolute Neuts (auto) (1.5-7.7) 10^3/ul Absolute Lymphs (auto) (1.0-4.8) 10^3/ul Absolute Monos (auto) (0-0.8) 10^3/ul Absolute Eos (auto) (0-0.6) 10^3/ul Absolute Basos (auto) (0-0.2) 10^3/ul Absolute Nucleated RBC 10^3/ul Nucleated RBC % INR (Anticoag Therapy) 0.79 (0.77-1.02) Sodium (135-145) mmol/L Potassium (3.5-5.0) mmol/L Chloride (101-111) mmol/L Carbon Dioxide (22-32) mmol/L Anion Gap (2-11) mmol/L BUN (6-24) mg/dL Creatinine (0.67-1.17) mg/dL Est GFR ( Amer) (>60) Est GFR (Non-Af Amer) (>60) BUN/Creatinine Ratio (8-20) Glucose (70-100) mg/dL Lactic Acid (0.5-2.0) mmol/L Calcium (8.6-10.3) mg/dL Magnesium (1.9-2.7) mg/dL Total Bilirubin (0.2-1.0) mg/dL AST (13-39) U/L ALT (7-52) U/L Alkaline Phosphatase (34-104) U/L Total Creatine Kinase (10-223) U/L Troponin I (<0.04) ng/mL Total Protein (6.4-8.9) g/dL Albumin (3.2-5.2) g/dL Globulin (2-4) g/dL Albumin/Globulin Ratio (1-3) Urine Color Yellow Urine Appearance Cloudy Urine pH 6.0 (5-9) Ur Specific [place] 1.004 L (1.010-1.030) Urine Protein Negative (Negative) Urine Ketones Trace A (Negative) Urine Blood Negative (Negative) Urine Nitrate Negative (Negative) Urine Bilirubin Negative (Negative) Urine Urobilinogen Negative (Negative) Ur Leukocyte Esterase Negative (Negative) Urine Glucose Negative (Negative) Salicylates (<30) mg/dL Urine Opiates Screen None detected (None Detect) Acetaminophen mcg/mL Ur Barbiturates Screen None detected (None Detect) Ur Phencyclidine Scrn None detected (None Detect) Ur Amphetamines Screen None detected (None Detect) U Benzodiazepines Scrn None detected (None Detect) Urine Cocaine Screen None detected (None Detect) U Cannabinoids Screen None detected (None Detect) Serum Alcohol (<10) mg/dL Assess/Plan/Problems-Billing Assessment: Mr. Constantino is a 47yo male with PMH of ETOH abuse, alcoholic hepatitis, anxiety, depression, and HTN who presented to the ED requesting alcohol detox and was admitted on [facility] protocol. - Patient Problems (1) Alcohol withdrawal Current Visit: Yes Status: Acute Priority: High Code(s): F10.239 - ALCOHOL DEPENDENCE WITH WITHDRAWAL, UNSPECIFIED SNOMED Code(s): 346756247 Comment: - continues with moderate symptoms- reporting auditory and visual hallucinations - Social work consult for rehab - Continue [facility] protocol and lorazepam - Continue MV, thiamine, folic acid (2) Elevated LFTs Current Visit: Yes Status: Acute Priority: High Code(s): R94.5 - ABNORMAL RESULTS OF LIVER FUNCTION STUDIES SNOMED Code(s): 278015687 Comment: - Hx of alcoholic hepatitis - Continue to trend LFTs - liver US - showed fatty liver infilltrate - hepatitis - nonreactive (3) Anxiety Current Visit: Yes Status: Chronic Priority: High Code(s): F41.9 - ANXIETY DISORDER, UNSPECIFIED SNOMED Code(s): 89400232 Comment: - Continue lorazepam per [facility] protocol (4) Depression Current Visit: Yes Status: Chronic Priority: High Code(s): F32.9 - MAJOR DEPRESSIVE DISORDER, SINGLE EPISODE, UNSPECIFIED SNOMED Code(s): 53748828 Comment: - Continue sertraline (5) HTN (hypertension) Current Visit: Yes Status: Chronic Priority: Medium Code(s): I10 - ESSENTIAL (PRIMARY) HYPERTENSION SNOMED Code(s): 19274350 Comment: - Normotensive - Continue lisinopril (6) DVT prophylaxis Current Visit: Yes Status: Acute Priority: High Code(s): QFZ3633 - SNOMED Code(s): 121372960 Comment: - SCDs (7) Full code status Current Visit: Yes Status: Acute Priority: High Code(s): Z78.9 - OTHER SPECIFIED HEALTH STATUS SNOMED Code(s): 031941577 Status and Disposition: Inpatient for acute withdrawal. Needs assistance finding rehab facility.
[2018-01-11] MEDS: Ibuprofen TAB* 600 MG PO PRN (23:07)
[2018-01-12] MEDS: LORazepam TAB(*) 1 MG PO SCH ×3 (02:10→13:28)
[2018-01-12] MEDS: Multivitamins/Minerals TAB PO SCH (08:30)
[2018-01-12] MEDS: Thiamine TAB* 100 MG TAB PO SCH (08:30)
[2018-01-12] MEDS: Folic Acid TAB* 1 MG PO SCH (08:30)
[2018-01-12] MEDS: Sertraline* 50 MG TAB PO SCH (08:30)
[2018-01-12] MEDS: Lisinopril TAB* 10 MG PO SCH (08:30)
--- NOTE | 2018-01-12 09:56 | PN ---
Subjective Date of Service: 01/12/18 Interval History: patient continues to c/o having feeling that people are watching him. reports tremors, and dizziness. Denies chest pain or shortness of breath. Denies abd pain. reports mild nausea. Denies v/d. Family History: Unchanged from Admission Social History: Unchanged from Admission Past Medical History: Unchanged from Admission Objective Active Medications: Acetaminophen (Tylenol Tab*) 975 mg PO Q6H PRN PRN Reason: FEVER/PAIN Last Admin: 01/10/18 08:54 Dose: 975 mg Al Hydrox/Mg Hydrox/Simethicone (Maalox Plus*) 30 ml PO Q6H PRN PRN Reason: INDIGESTION Albuterol (Ventolin 2.5 Mg/3 Ml Neb.Nydia*) 2.5 mg INH [id number] AWAKE PRN PRN Reason: sob/wheezing Folic Acid (Folvite Tab*) 1 mg PO DAILY [facility] Last Admin: 01/12/18 08:30 Dose: 1 mg Ibuprofen (Motrin Tab*) 600 mg PO Q6H PRN PRN Reason: PAIN Last Admin: 01/11/18 23:07 Dose: 600 mg Lisinopril (Prinivil Tab*) 10 mg PO DAILY [facility] Last Admin: 01/12/18 08:30 Dose: 10 mg Lorazepam (Ativan Tab(*)) 0 - 6 mg PO .PER [facility] PROTOCOL [facility]; Protocol Last Admin: 01/12/18 02:10 Dose: 2 mg Multivitamins/Minerals (Theragran/Minerals Tab*) 1 tab PO DAILY [facility] Last Admin: 01/12/18 08:30 Dose: 1 tab Ondansetron HCl (Zofran Inj*) 4 mg IV Q4H PRN PRN Reason: NAUSEA/VOMITING Last Admin: 01/09/18 20:04 Dose: 4 mg Sertraline HCl (Zoloft*) 50 mg PO [facility] Last Admin: 01/12/18 08:30 Dose: 50 mg Thiamine HCl (Vitamin B-1 Tab*) 100 mg PO DAILY [facility] Last Admin: 01/12/18 08:30 Dose: 100 mg Vital Signs - 8 hr 01/12/18 01/12/18 01/12/18 02:03 02:10 04:00 Temperature 98.4 F Pulse Rate 86 Respiratory 16 20 20 Rate Blood Pressure 121/92 (mmHg) O2 Sat by Pulse 100 Oximetry 01/12/18 01/12/18 01/12/18 04:10 06:05 08:10 Temperature 97.7 F 97.6 F 98.2 F Pulse Rate 57 63 59 Respiratory 16 16 16 Rate Blood Pressure 125/83 123/80 139/90 (mmHg) O2 Sat by Pulse 98 99 99 Oximetry Oxygen Devices in Use Now: None Appearance: alert, oriented x3 appears anxious. No acute distress Eyes: No Scleral Icterus Ears/Nose/Mouth/Throat: Clear Oropharnyx, Mucous Membranes Moist Neck: NL Appearance and Movements; NL JVP, Trachea Midline Respiratory: Symmetrical Chest Expansion and Respiratory Effort, Clear to Auscultation Cardiovascular: NL Sounds; No Murmurs; No JVD, No Edema Abdominal: NL Sounds; No Tenderness; No Distention Extremities: No Edema, No Clubbing, Cyanosis Skin: No Rash or Ulcers Neurological: Alert and Oriented x 3, - - bilat hands with moderte tremors Nutrition: Taking PO's Result Diagrams: 01/11/18 06:15 01/11/18 06:15 Additional Lab and Data: Lab Results 01/09/18 01/09/18 01/09/18 Range/Units 13:38 13:38 13:38 WBC 4.4 (3.5-10.8) 10^3/ul RBC 4.39 (4.00-5.40) 10^6/ul Hgb 15.2 (14.0-18.0) g/dl Hct 44 (42-52) % MCV 100 H (80-94) fL MCH 35 H (27-31) pg MCHC 35 (31-36) g/dl RDW 14 (10.5-15) % Plt Count 135 L (150-450) 10^3/ul MPV 6.8 L (7.4-10.4) um3 Neut % (Auto) 54.1 (38-83) % Lymph % (Auto) 33.0 (25-47) % [place] % (Auto) 10.9 H (0-7) % Eos % (Auto) 1.3 (0-6) % Baso % (Auto) 0.7 (0-2) % Absolute Neuts (auto) 2.4 (1.5-7.7) 10^3/ul Absolute Lymphs (auto) 1.4 (1.0-4.8) 10^3/ul Absolute Monos (auto) 0.5 (0-0.8) 10^3/ul Absolute Eos (auto) 0.1 (0-0.6) 10^3/ul Absolute Basos (auto) 0 (0-0.2) 10^3/ul Absolute Nucleated RBC 0 10^3/ul Nucleated RBC % 0.1 INR (Anticoag Therapy) (0.77-1.02) Sodium 133 L (135-145) mmol/L Potassium 4.0 (3.5-5.0) mmol/L Chloride 95 L (101-111) mmol/L Carbon Dioxide 25 (22-32) mmol/L Anion Gap 13 H (2-11) mmol/L BUN 14 (6-24) mg/dL Creatinine 0.84 (0.67-1.17) mg/dL Est GFR ( Amer) 118.0 (>60) Est GFR (Non-Af Amer) 97.5 (>60) BUN/Creatinine Ratio 16.7 (8-20) Glucose 78 (70-100) mg/dL Lactic Acid 1.6 (0.5-2.0) mmol/L Calcium 9.3 (8.6-10.3) mg/dL Magnesium 1.9 (1.9-2.7) mg/dL Total Bilirubin 1.20 H (0.2-1.0) mg/dL AST 125 H (13-39) U/L ALT 134 H (7-52) U/L Alkaline Phosphatase 111 H (34-104) U/L Total Creatine Kinase 70 (10-223) U/L Troponin I 0.03 (<0.04) ng/mL Total Protein 6.8 (6.4-8.9) g/dL Albumin 4.1 (3.2-5.2) g/dL Globulin 2.7 (2-4) g/dL Albumin/Globulin Ratio 1.5 (1-3) Urine Color Urine Appearance Urine pH (5-9) Ur Specific [place] (1.010-1.030) Urine Protein (Negative) Urine Ketones (Negative) Urine Blood (Negative) Urine Nitrate (Negative) Urine Bilirubin (Negative) Urine Urobilinogen (Negative) Ur Leukocyte Esterase (Negative) Urine Glucose (Negative) Salicylates < 2.50 (<30) mg/dL Urine Opiates Screen (None Detect) Acetaminophen < 15 mcg/mL Ur Barbiturates Screen (None Detect) Ur Phencyclidine Scrn (None Detect) Ur Amphetamines Screen (None Detect) U Benzodiazepines Scrn (None Detect) Urine Cocaine Screen (None Detect) U Cannabinoids Screen (None Detect) Serum Alcohol < 10 (<10) mg/dL 01/09/18 01/09/18 01/09/18 Range/Units 13:38 15:16 15:16 WBC (3.5-10.8) 10^3/ul RBC (4.00-5.40) 10^6/ul Hgb (14.0-18.0) g/dl Hct (42-52) % MCV (80-94) fL MCH (27-31) pg MCHC (31-36) g/dl RDW (10.5-15) % Plt Count (150-450) 10^3/ul MPV (7.4-10.4) um3 Neut % (Auto) (38-83) % Lymph % (Auto) (25-47) % [place] % (Auto) (0-7) % Eos % (Auto) (0-6) % Baso % (Auto) (0-2) % Absolute Neuts (auto) (1.5-7.7) 10^3/ul Absolute Lymphs (auto) (1.0-4.8) 10^3/ul Absolute Monos (auto) (0-0.8) 10^3/ul Absolute Eos (auto) (0-0.6) 10^3/ul Absolute Basos (auto) (0-0.2) 10^3/ul Absolute Nucleated RBC 10^3/ul Nucleated RBC % INR (Anticoag Therapy) 0.79 (0.77-1.02) Sodium (135-145) mmol/L Potassium (3.5-5.0) mmol/L Chloride (101-111) mmol/L Carbon Dioxide (22-32) mmol/L Anion Gap (2-11) mmol/L BUN (6-24) mg/dL Creatinine (0.67-1.17) mg/dL Est GFR ( Amer) (>60) Est GFR (Non-Af Amer) (>60) BUN/Creatinine Ratio (8-20) Glucose (70-100) mg/dL Lactic Acid (0.5-2.0) mmol/L Calcium (8.6-10.3) mg/dL Magnesium (1.9-2.7) mg/dL Total Bilirubin (0.2-1.0) mg/dL AST (13-39) U/L ALT (7-52) U/L Alkaline Phosphatase (34-104) U/L Total Creatine Kinase (10-223) U/L Troponin I (<0.04) ng/mL Total Protein (6.4-8.9) g/dL Albumin (3.2-5.2) g/dL Globulin (2-4) g/dL Albumin/Globulin Ratio (1-3) Urine Color Yellow Urine Appearance Cloudy Urine pH 6.0 (5-9) Ur Specific [place] 1.004 L (1.010-1.030) Urine Protein Negative (Negative) Urine Ketones Trace A (Negative) Urine Blood Negative (Negative) Urine Nitrate Negative (Negative) Urine Bilirubin Negative (Negative) Urine Urobilinogen Negative (Negative) Ur Leukocyte Esterase Negative (Negative) Urine Glucose Negative (Negative) Salicylates (<30) mg/dL Urine Opiates Screen None detected (None Detect) Acetaminophen mcg/mL Ur Barbiturates Screen None detected (None Detect) Ur Phencyclidine Scrn None detected (None Detect) Ur Amphetamines Screen None detected (None Detect) U Benzodiazepines Scrn None detected (None Detect) Urine Cocaine Screen None detected (None Detect) U Cannabinoids Screen None detected (None Detect) Serum Alcohol (<10) mg/dL Assess/Plan/Problems-Billing Assessment: Mr. Constantino is a 47yo male with PMH of ETOH abuse, alcoholic hepatitis, anxiety, depression, and HTN who presented to the ED requesting alcohol detox and was admitted on [facility] protocol. - Patient Problems (1) Alcohol withdrawal Current Visit: Yes Status: Acute Priority: High Code(s): F10.239 - ALCOHOL DEPENDENCE WITH WITHDRAWAL, UNSPECIFIED SNOMED Code(s): 677236868 Comment: - continues with moderate symptoms- reporting visual hallucinations - Social work consult for rehab - Continue [facility] protocol and lorazepam - Continue MV, thiamine, folic acid - will add Librium taper dosing starting with 25mg TID for today and then will decrease to 25 mg BID x1 day and then 25mg Daily x 1 day (2) Elevated LFTs Current Visit: Yes Status: Acute Priority: High Code(s): R94.5 - ABNORMAL RESULTS OF LIVER FUNCTION STUDIES SNOMED Code(s): 336684664 Comment: improving - Hx of alcoholic hepatitis - Continue to trend LFTs - liver US - showed fatty liver infilltrate - hepatitis - nonreactive (3) Anxiety Current Visit: Yes Status: Chronic Priority: High Code(s): F41.9 - ANXIETY DISORDER, UNSPECIFIED SNOMED Code(s): 16710460 Comment: - Continue zoloft and ativan PER [facility] protocol - will add librium to assist too. (4) Depression Current Visit: Yes Status: Chronic Priority: High Code(s): F32.9 - MAJOR DEPRESSIVE DISORDER, SINGLE EPISODE, UNSPECIFIED SNOMED Code(s): 93498539 Comment: - Continue sertraline (5) HTN (hypertension) Current Visit: Yes Status: Chronic Priority: Medium Code(s): I10 - ESSENTIAL (PRIMARY) HYPERTENSION SNOMED Code(s): 99645395 Comment: - Normotensive - Continue lisinopril (6) DVT prophylaxis Current Visit: Yes Status: Acute Priority: High Code(s): KSQ7169 - SNOMED Code(s): 069260509 Comment: - SCDs (7) Full code status Current Visit: Yes Status: Acute Priority: High Code(s): Z78.9 - OTHER SPECIFIED HEALTH STATUS SNOMED Code(s): 460710400 Status and Disposition: Inpatient for acute withdrawal. Needs assistance finding rehab facility.
[2018-01-12] MEDS: chlordiazePOXIDE CAP* 25 MG PO SCH ×2 (14:08→20:10)
[2018-01-13] MEDS: Ibuprofen TAB* 600 MG PO PRN ×3 (00:38→16:14)
[2018-01-13] MEDS: LORazepam TAB(*) 1 MG PO SCH ×5 (00:38→16:14)
[2018-01-13 05:58] LABS: ABS Basophils 0 10^3/ul (0-0.2); ABS Eosinophils 0.1 10^3/ul (0-0.6); ABS Lymphocytes 1.4 10^3/ul (1.0-4.8); ABS Monocytes 0.3 10^3/ul (0-0.8); ABS Neutrophils 1.4 10^3/ul (1.5-7.7); ABS Nucleated RBC 0 10^3/ul; Eosinophil % 3.5 % (0-6); Hematocrit 39 % (42-52); Hemoglobin 13.5 g/dl (14.0-18.0); Lymphocyte % 41.4 % (25-47); Mean Corpuscular HGB Conc 35 g/dl (31-36); Mean Corpuscular Hemoglobin 35 pg (27-31); Mean Corpuscular Volume 100 fL (80-94); Mean Platelet Volume 7.4 um3 (7.4-10.4); Nucleated Red Blood Cells % 0.2; Platelet Count 140 10^3/ul (150-450); Red Blood Count 3.84 10^6/ul (4.00-5.40); Red Cell Distribution Width 14 % (10.5-15); White Blood Count 3.3 10^3/ul (3.5-10.8)
[2018-01-13] MEDS: Ondansetron INJ* 2 MG/ML VIAL IV PRN ×2 (08:43→20:40)
[2018-01-13] MEDS: chlordiazePOXIDE CAP* 25 MG PO SCH ×2 (08:57→20:39)
[2018-01-13] MEDS: Lisinopril TAB* 10 MG PO SCH (08:57)
[2018-01-13] MEDS: Thiamine TAB* 100 MG TAB PO SCH (08:57)
[2018-01-13] MEDS: Sertraline* 50 MG TAB PO SCH (08:58)
[2018-01-13] MEDS: Multivitamins/Minerals TAB PO SCH (08:58)
[2018-01-13] MEDS: Folic Acid TAB* 1 MG PO SCH (08:58)
--- NOTE | 2018-01-13 10:32 | PN ---
Subjective Date of Service: 01/13/18 Interval History: Mr. Constantino reports continued tremor and diaphoresis with dizziness with ambulation today. He reports several years of on and off alcoholism and reports that he has never done rehab and has only ever attended one meeting. He reports interest in rehab today but understands he will likely need to be discharged to home when his symptoms have stabilized. He denies chest pain, SOB , nausea, or abdominal pain. Family History: Unchanged from Admission Social History: Unchanged from Admission Past Medical History: Unchanged from Admission Objective Active Medications: Acetaminophen (Tylenol Tab*) 975 mg PO Q6H PRN Al Hydrox/Mg Hydrox/Simethicone (Maalox Plus*) 30 ml PO Q6H PRN Albuterol (Ventolin 2.5 Mg/3 Ml Neb.Nydia*) 2.5 mg INH [id number] AWAKE PRN Folic Acid (Folvite Tab*) 1 mg PO DAILY [facility] Ibuprofen (Motrin Tab*) 600 mg PO Q6H PRN Lisinopril (Prinivil Tab*) 10 mg PO DAILY [facility] Lorazepam (Ativan Tab(*)) 0 - 6 mg PO .PER [facility] PROTOCOL [facility]; Protocol Multivitamins/Minerals (Theragran/Minerals Tab*) 1 tab PO DAILY [facility] Ondansetron HCl (Zofran Inj*) 4 mg IV Q4H PRN Sertraline HCl (Zoloft*) 50 mg PO QAM [facility] Thiamine HCl (Vitamin B-1 Tab*) 100 mg PO DAILY [facility] Vital Signs: Temp Pulse Resp BP Pulse Ox 98.7 F 63 24 150/79 99 01/13/18 08:00 01/13/18 08:00 01/13/18 08:58 01/13/18 08:00 01/13/18 08:00 Oxygen Devices in Use Now: None Appearance: Male lying in bed, tremulous, NAD Eyes: No Scleral Icterus Ears/Nose/Mouth/Throat: Mucous Membranes Moist Neck: Trachea Midline Respiratory: Symmetrical Chest Expansion and Respiratory Effort, Clear to Auscultation Cardiovascular: NL Sounds; No Murmurs; No JVD, No Edema Abdominal: NL Sounds; No Tenderness; No Distention Extremities: No Edema Skin: No Rash or Ulcers Neurological: Alert and Oriented x 3, NL Muscle Strength and Tone Nutrition: Taking PO's Result Diagrams: 01/13/18 05:21 01/11/18 06:15 Additional Lab and Data: . Assess/Plan/Problems-Billing Assessment: Mr. Constantino is a 47yo male with PMH of ETOH abuse, alcoholic hepatitis, anxiety, depression, and HTN who presented to the ED requesting alcohol detox and was admitted on [facility] protocol. - Patient Problems (1) Alcohol withdrawal Comment: - Continues with moderate symptoms - tremor and diaphoresis today. - Continue [facility] protocol with prn lorazepam. Continue Librium taper at 25 mg BID x1 day and then 25mg Daily x 1 day - Continue MV, thiamine, folic acid (2) Elevated LFTs Comment: - Resolving, secondary to alcoholic hepatitis - Liver US - showed fatty liver infilltrate. Hepatitis panel nonreactive. (3) Anxiety Comment: - Continue zoloft and ativan PER [facility] protocol - Patient was on buspar previously, but did not like it. (4) HTN (hypertension) Comment: - Normotensive - Continue lisinopril (5) Depression Comment: - Continue sertraline (6) DVT prophylaxis Comment: - SCDs (7) Full code status Comment: Status and Disposition: Inpatient for acute withdrawal.
[2018-01-13] MEDS ORDERED: chlordiazePOXIDE CAP* 25 MG PO SCH (11:00)
[2018-01-14] MEDS: LORazepam TAB(*) 1 MG PO SCH ×5 (00:11→15:39)
[2018-01-14] MEDS: Lisinopril TAB* 10 MG PO SCH (08:35)
[2018-01-14] MEDS: chlordiazePOXIDE CAP* 25 MG PO SCH (08:35)
[2018-01-14] MEDS: Folic Acid TAB* 1 MG PO SCH (08:35)
[2018-01-14] MEDS: Thiamine TAB* 100 MG TAB PO SCH (08:35)
[2018-01-14] MEDS: Sertraline* 50 MG TAB PO SCH (08:35)
[2018-01-14] MEDS: Multivitamins/Minerals TAB PO SCH (08:35)
[2018-01-14] MEDS: Ibuprofen TAB* 600 MG PO PRN (13:12)
[2018-01-14] MEDS ORDERED: chlordiazePOXIDE CAP* 25 MG PO ONE (16:01)
--- NOTE | 2018-01-14 16:09 | PN ---
Subjective Date of Service: 01/14/18 Interval History: Mr. Constantino reports feeling somewhat better today. He continues to be tremulous and diaphoretic at times. He denies other complaint. Family History: Unchanged from Admission Social History: Unchanged from Admission Past Medical History: Unchanged from Admission Objective Active Medications: Acetaminophen (Tylenol Tab*) 975 mg PO Q6H PRN Al Hydrox/Mg Hydrox/Simethicone (Maalox Plus*) 30 ml PO Q6H PRN Albuterol (Ventolin 2.5 Mg/3 Ml Neb.Nydia*) 2.5 mg INH [id number] AWAKE PRN Buspirone HCl (Buspar Tab *) 15 mg PO BID [facility] Chlordiazepoxide (Librium Cap*) 25 mg PO ONCE ONE Folic Acid (Folvite Tab*) 1 mg PO DAILY [facility] Ibuprofen (Motrin Tab*) 600 mg PO Q6H PRN Lisinopril (Prinivil Tab*) 10 mg PO DAILY [facility] Lorazepam (Ativan Tab(*)) 0 - 6 mg PO .PER [facility] PROTOCOL [facility]; Protocol Multivitamins/Minerals (Theragran/Minerals Tab*) 1 tab PO DAILY [facility] Ondansetron HCl (Zofran Inj*) 4 mg IV Q4H PRN Sertraline HCl (Zoloft*) 50 mg PO QAM [facility] Thiamine HCl (Vitamin B-1 Tab*) 100 mg PO DAILY [facility] Vital Signs: Temp Pulse Resp BP Pulse Ox 98.1 F 85 20 122/81 98 01/14/18 15:19 01/14/18 15:19 01/14/18 15:39 01/14/18 15:19 01/14/18 15:19 Oxygen Devices in Use Now: None Appearance: Male sitting up in bed in NAD Eyes: No Scleral Icterus Ears/Nose/Mouth/Throat: Mucous Membranes Moist Neck: Trachea Midline Respiratory: Symmetrical Chest Expansion and Respiratory Effort, Clear to Auscultation Cardiovascular: NL Sounds; No Murmurs; No JVD, No Edema Abdominal: NL Sounds; No Tenderness; No Distention Lymphatic: No Cervical Adenopathy Extremities: No Edema Skin: No Rash or Ulcers Neurological: Alert and Oriented x 3, NL Muscle Strength and Tone Nutrition: Taking PO's Result Diagrams: 01/13/18 05:21 01/11/18 06:15 Additional Lab and Data: . Assess/Plan/Problems-Billing Assessment: Mr. Constantino is a 47yo male with PMH of ETOH abuse, alcoholic hepatitis, anxiety, depression, and HTN who presented to the ED requesting alcohol detox and was admitted on [facility] protocol. - Patient Problems (1) Alcohol withdrawal Comment: - Continues with moderate symptoms - tremor and diaphoresis today. - Continue [facility] protocol with prn lorazepam. Completed librium taper today. - Continue MV, thiamine, folic acid (2) Elevated LFTs Comment: - Resolving, secondary to alcoholic hepatitis - Liver US - showed fatty liver infilltrate. Hepatitis panel nonreactive. (3) Anxiety Comment: - Continue zoloft and ativan PER [facility] protocol - Patient was on buspar previously, but did not feel effect. Only on for 2 weeks, will resume. (4) HTN (hypertension) Comment: - Normotensive - Continue lisinopril (5) Depression Comment: - Continue sertraline (6) DVT prophylaxis Comment: - SCDs (7) Full code status Comment: Status and Disposition: Inpatient for acute withdrawal.
[2018-01-14] MEDS: busPIRone TAB* 15 MG PO SCH (20:34)
[2018-01-15] MEDS: LORazepam TAB(*) 1 MG PO SCH ×4 (01:19→17:06)
[2018-01-15] MEDS: Folic Acid TAB* 1 MG PO SCH (07:39)
[2018-01-15] MEDS: Lisinopril TAB* 10 MG PO SCH (07:40)
[2018-01-15] MEDS: Sertraline* 50 MG TAB PO SCH (07:40)
[2018-01-15] MEDS: busPIRone TAB* 15 MG PO SCH ×2 (07:40→21:37)
[2018-01-15] MEDS: Thiamine TAB* 100 MG TAB PO SCH (07:40)
[2018-01-15] MEDS: Multivitamins/Minerals TAB PO SCH (07:40)
--- NOTE | 2018-01-15 17:17 | PN ---
Subjective Date of Service: 01/15/18 Interval History: reports that anxiety has improved some. hopeful for inpatient rehab bed. discussed with patient that bed may not be available and he may need to be discharge and then go to inpatient rehab. Family History: Unchanged from Admission Social History: Unchanged from Admission Past Medical History: Unchanged from Admission Objective Active Medications: Acetaminophen (Tylenol Tab*) 975 mg PO Q6H PRN PRN Reason: FEVER/PAIN Last Admin: 01/10/18 08:54 Dose: 975 mg Al Hydrox/Mg Hydrox/Simethicone (Maalox Plus*) 30 ml PO Q6H PRN PRN Reason: INDIGESTION Albuterol (Ventolin 2.5 Mg/3 Ml Neb.Nydia*) 2.5 mg INH [id number] AWAKE PRN PRN Reason: sob/wheezing Buspirone HCl (Buspar Tab *) 15 mg PO BID [facility] Last Admin: 01/15/18 07:40 Dose: 15 mg Folic Acid (Folvite Tab*) 1 mg PO DAILY [facility] Last Admin: 01/15/18 07:39 Dose: 1 mg Ibuprofen (Motrin Tab*) 600 mg PO Q6H PRN PRN Reason: PAIN Last Admin: 01/14/18 13:12 Dose: 600 mg Lisinopril (Prinivil Tab*) 10 mg PO DAILY [facility] Last Admin: 01/15/18 07:40 Dose: 10 mg Lorazepam (Ativan Tab(*)) 0 - 6 mg PO .PER [facility] PROTOCOL [facility]; Protocol Last Admin: 01/15/18 17:06 Dose: 2 mg Multivitamins/Minerals (Theragran/Minerals Tab*) 1 tab PO DAILY [facility] Last Admin: 01/15/18 07:40 Dose: 1 tab Ondansetron HCl (Zofran Inj*) 4 mg IV Q4H PRN PRN Reason: NAUSEA/VOMITING Last Admin: 01/13/18 20:40 Dose: 4 mg Sertraline HCl (Zoloft*) 50 mg PO QAM [facility] Last Admin: 01/15/18 07:40 Dose: 50 mg Thiamine HCl (Vitamin B-1 Tab*) 100 mg PO DAILY [facility] Last Admin: 01/15/18 07:40 Dose: 100 mg Vital Signs - 8 hr 01/15/18 01/15/18 01/15/18 11:17 12:02 12:18 Temperature 97.7 F Pulse Rate 78 Respiratory 18 20 22 Rate Blood Pressure 153/110 (mmHg) O2 Sat by Pulse 100 Oximetry 01/15/18 01/15/18 01/15/18 12:19 14:55 15:36 Temperature 98.2 F Pulse Rate 55 Respiratory 20 24 Rate Blood Pressure 142/60 139/82 (mmHg) O2 Sat by Pulse 100 Oximetry 01/15/18 17:06 Temperature Pulse Rate Respiratory 22 Rate Blood Pressure (mmHg) O2 Sat by Pulse Oximetry Oxygen Devices in Use Now: None Appearance: appears comfortable, resting in bed , no acute distress Eyes: No Scleral Icterus Ears/Nose/Mouth/Throat: Clear Oropharnyx, Mucous Membranes Moist Neck: NL Appearance and Movements; NL JVP, Trachea Midline Respiratory: Symmetrical Chest Expansion and Respiratory Effort, Clear to Auscultation Cardiovascular: NL Sounds; No Murmurs; No JVD, No Edema Abdominal: NL Sounds; No Tenderness; No Distention Extremities: No Edema, No Clubbing, Cyanosis, - - upper ext with fine tremors Skin: No Rash or Ulcers Neurological: Alert and Oriented x 3 Nutrition: Taking PO's Result Diagrams: 01/13/18 05:21 01/11/18 06:15 Additional Lab and Data: . Assess/Plan/Problems-Billing Assessment: Mr. Constantino is a 47yo male with PMH of ETOH abuse, alcoholic hepatitis, anxiety, depression, and HTN who presented to the ED requesting alcohol detox and was admitted on [facility] protocol. - Patient Problems (1) Alcohol withdrawal Current Visit: Yes Status: Acute Priority: High Code(s): F10.239 - ALCOHOL DEPENDENCE WITH WITHDRAWAL, UNSPECIFIED SNOMED Code(s): 797230993 Comment: - symptoms improved - tremors continue today. - Continue [facility] protocol with prn lorazepam. - Continue MV, thiamine, folic acid (2) Elevated LFTs Current Visit: Yes Status: Acute Priority: High Code(s): R94.5 - ABNORMAL RESULTS OF LIVER FUNCTION STUDIES SNOMED Code(s): 418786146 Comment: - Resolving, secondary to alcoholic hepatitis - Liver US - showed fatty liver infilltrate. Hepatitis panel nonreactive. (3) Anxiety Current Visit: Yes Status: Chronic Priority: High Code(s): F41.9 - ANXIETY DISORDER, UNSPECIFIED SNOMED Code(s): 70129569 Comment: - Continue zoloft and ativan PER [facility] protocol - Patient was on buspar previously, but did not feel effect. Only on for 2 weeks, will continue. (4) Depression Current Visit: Yes Status: Chronic Priority: High Code(s): F32.9 - MAJOR DEPRESSIVE DISORDER, SINGLE EPISODE, UNSPECIFIED SNOMED Code(s): 73511096 Comment: - Continue sertraline (5) HTN (hypertension) Current Visit: Yes Status: Chronic Priority: Medium Code(s): I10 - ESSENTIAL (PRIMARY) HYPERTENSION SNOMED Code(s): 86551647 Comment: - Normotensive - Continue lisinopril (6) DVT prophylaxis Current Visit: Yes Status: Acute Priority: High Code(s): TQD4151 - SNOMED Code(s): 146672895 Comment: - SCDs (7) Full code status Current Visit: Yes Status: Acute Priority: High Code(s): Z78.9 - OTHER SPECIFIED HEALTH STATUS SNOMED Code(s): 963258791 Comment: Status and Disposition: Inpatient - will discharge home tomorrow if inpatient rehab bed is not available , Will need follow up at [facility]
[2018-01-15] MEDS: Ibuprofen TAB* 600 MG PO PRN (21:44)
[2018-01-15] MEDS: hydrOXYzine HCL TAB* 50 MG PO PRN (21:51)
[2018-01-16] MEDS: Lisinopril TAB* 10 MG PO SCH (08:10)
[2018-01-16] MEDS: Sertraline* 50 MG TAB PO SCH (08:10)
[2018-01-16] MEDS: Thiamine TAB* 100 MG TAB PO SCH (08:11)
[2018-01-16] MEDS: busPIRone TAB* 15 MG PO SCH ×2 (08:11→20:06)
[2018-01-16] MEDS: Folic Acid TAB* 1 MG PO SCH (08:11)
[2018-01-16] MEDS: Multivitamins/Minerals TAB PO SCH (08:11)
--- NOTE | 2018-01-16 16:30 | PN ---
Subjective Date of Service: 01/16/18 Interval History: Patient continues to c/o anxiety, denies chest pain or shortness of breath. Denies auditory and visual hallucinations. Denies chest pain or shortness of breath. Family History: Unchanged from Admission Social History: Unchanged from Admission Past Medical History: Unchanged from Admission Objective Active Medications: Acetaminophen (Tylenol Tab*) 975 mg PO Q6H PRN PRN Reason: FEVER/PAIN Last Admin: 01/10/18 08:54 Dose: 975 mg Al Hydrox/Mg Hydrox/Simethicone (Maalox Plus*) 30 ml PO Q6H PRN PRN Reason: INDIGESTION Albuterol (Ventolin 2.5 Mg/3 Ml Neb.Nydia*) 2.5 mg INH [id number] AWAKE PRN PRN Reason: sob/wheezing Buspirone HCl (Buspar Tab *) 15 mg PO BID [facility] Last Admin: 01/16/18 08:11 Dose: 15 mg Folic Acid (Folvite Tab*) 1 mg PO DAILY [facility] Last Admin: 01/16/18 08:11 Dose: 1 mg Hydroxyzine HCl (Atarax Tab*) 50 mg PO Q6H PRN PRN Reason: ANXIETY Last Admin: 01/15/18 21:51 Dose: 50 mg Ibuprofen (Motrin Tab*) 600 mg PO Q6H PRN PRN Reason: PAIN Last Admin: 01/15/18 21:44 Dose: 600 mg Lisinopril (Prinivil Tab*) 10 mg PO DAILY [facility] Last Admin: 01/16/18 08:10 Dose: 10 mg Multivitamins/Minerals (Theragran/Minerals Tab*) 1 tab PO DAILY [facility] Last Admin: 01/16/18 08:11 Dose: 1 tab Ondansetron HCl (Zofran Inj*) 4 mg IV Q4H PRN PRN Reason: NAUSEA/VOMITING Last Admin: 01/13/18 20:40 Dose: 4 mg Sertraline HCl (Zoloft*) 50 mg PO QAM [facility] Last Admin: 01/16/18 08:10 Dose: 50 mg Thiamine HCl (Vitamin B-1 Tab*) 100 mg PO DAILY [facility] Last Admin: 01/16/18 08:11 Dose: 100 mg Vital Signs - 8 hr 01/16/18 11:21 Temperature 98.2 F Pulse Rate 61 Respiratory 18 Rate Blood Pressure 154/94 (mmHg) O2 Sat by Pulse 99 Oximetry Oxygen Devices in Use Now: None Appearance: alert and oriented x3, no acute distress Eyes: No Scleral Icterus Ears/Nose/Mouth/Throat: Clear Oropharnyx, Mucous Membranes Moist Neck: NL Appearance and Movements; NL JVP, Trachea Midline Respiratory: Symmetrical Chest Expansion and Respiratory Effort, Clear to Auscultation Cardiovascular: NL Sounds; No Murmurs; No JVD, No Edema Abdominal: NL Sounds; No Tenderness; No Distention Extremities: No Edema, No Clubbing, Cyanosis Skin: No Rash or Ulcers Neurological: Alert and Oriented x 3 Nutrition: Taking PO's Result Diagrams: 01/13/18 05:21 01/11/18 06:15 Additional Lab and Data: . Assess/Plan/Problems-Billing Assessment: Mr. Constantino is a 47yo male with PMH of ETOH abuse, alcoholic hepatitis, anxiety, depression, and HTN who presented to the ED requesting alcohol detox and was admitted on [facility] protocol. - Patient Problems (1) Alcohol withdrawal Current Visit: Yes Status: Acute Priority: High Code(s): F10.239 - ALCOHOL DEPENDENCE WITH WITHDRAWAL, UNSPECIFIED SNOMED Code(s): 349412865 Comment: - symptoms improved - tremors continue today. - will stop WAM- patient with no signs of withdrawal - Continue MV, thiamine, folic acid (2) Elevated LFTs Current Visit: Yes Status: Acute Priority: High Code(s): R94.5 - ABNORMAL RESULTS OF LIVER FUNCTION STUDIES SNOMED Code(s): 073923083 Comment: - Resolving, secondary to alcoholic hepatitis - Liver US - showed fatty liver infilltrate. Hepatitis panel nonreactive. (3) Anxiety Current Visit: Yes Status: Chronic Priority: High Code(s): F41.9 - ANXIETY DISORDER, UNSPECIFIED SNOMED Code(s): 00320835 Comment: - Continue zoloft and buspar - reviewed with patient that burpar will take some time to achieve peak effects - suspect that some of his hand tremors are related to anxiety (4) Depression Current Visit: Yes Status: Chronic Priority: High Code(s): F32.9 - MAJOR DEPRESSIVE DISORDER, SINGLE EPISODE, UNSPECIFIED SNOMED Code(s): 88201502 Comment: - Continue sertraline (5) HTN (hypertension) Current Visit: Yes Status: Chronic Priority: Medium Code(s): I10 - ESSENTIAL (PRIMARY) HYPERTENSION SNOMED Code(s): 87384608 Comment: - Normotensive - Continue lisinopril (6) DVT prophylaxis Current Visit: Yes Status: Acute Priority: High Code(s): CII8297 - SNOMED Code(s): 459730928 Comment: - SCDs (7) Full code status Current Visit: Yes Status: Acute Priority: High Code(s): Z78.9 - OTHER SPECIFIED HEALTH STATUS SNOMED Code(s): 755736240 Comment: Status and Disposition: Inpatient - WIll discharge to inpatient rehab .
[2018-01-16] MEDS: hydrOXYzine HCL TAB* 50 MG PO PRN (20:06)
[2018-01-17] MEDS: Lisinopril TAB* 10 MG PO SCH (08:27)
[2018-01-17] MEDS: Multivitamins/Minerals TAB PO SCH (08:27)
[2018-01-17] MEDS: Sertraline* 50 MG TAB PO SCH (08:27)
[2018-01-17] MEDS: Thiamine TAB* 100 MG TAB PO SCH (08:27)
[2018-01-17] MEDS: busPIRone TAB* 15 MG PO SCH ×2 (08:27→20:00)
[2018-01-17] MEDS: Folic Acid TAB* 1 MG PO SCH (08:28)
--- NOTE | 2018-01-17 17:09 | PN ---
Subjective Date of Service: 01/17/18 Interval History: Patient continues to report anxiety. Denies headache, dizziness , chest pain or shortness of breath. Denies abd pain n/v/d. Family History: Unchanged from Admission Social History: Unchanged from Admission Past Medical History: Unchanged from Admission Objective Active Medications: Acetaminophen (Tylenol Tab*) 975 mg PO Q6H PRN PRN Reason: FEVER/PAIN Last Admin: 01/10/18 08:54 Dose: 975 mg Al Hydrox/Mg Hydrox/Simethicone (Maalox Plus*) 30 ml PO Q6H PRN PRN Reason: INDIGESTION Albuterol (Ventolin 2.5 Mg/3 Ml Neb.Nydia*) 2.5 mg INH [id number] AWAKE PRN PRN Reason: sob/wheezing Buspirone HCl (Buspar Tab *) 15 mg PO BID [facility] Last Admin: 01/17/18 08:27 Dose: 15 mg Folic Acid (Folvite Tab*) 1 mg PO DAILY [facility] Last Admin: 01/17/18 08:28 Dose: 1 mg Hydroxyzine HCl (Atarax Tab*) 50 mg PO Q6H PRN PRN Reason: ANXIETY Last Admin: 01/16/18 20:06 Dose: 50 mg Ibuprofen (Motrin Tab*) 600 mg PO Q6H PRN PRN Reason: PAIN Last Admin: 01/15/18 21:44 Dose: 600 mg Lisinopril (Prinivil Tab*) 10 mg PO DAILY [facility] Last Admin: 01/17/18 08:27 Dose: 10 mg Multivitamins/Minerals (Theragran/Minerals Tab*) 1 tab PO DAILY [facility] Last Admin: 01/17/18 08:27 Dose: 1 tab Ondansetron HCl (Zofran Inj*) 4 mg IV Q4H PRN PRN Reason: NAUSEA/VOMITING Last Admin: 01/13/18 20:40 Dose: 4 mg Sertraline HCl (Zoloft*) 50 mg PO QAM [facility] Last Admin: 01/17/18 08:27 Dose: 50 mg Thiamine HCl (Vitamin B-1 Tab*) 100 mg PO DAILY [facility] Last Admin: 01/17/18 08:27 Dose: 100 mg Vital Signs - 8 hr 01/17/18 01/17/18 11:45 15:28 Temperature 98.7 F 98.3 F Pulse Rate 54 58 Respiratory 16 20 Rate Blood Pressure 126/83 119/68 (mmHg) O2 Sat by Pulse 98 99 Oximetry Oxygen Devices in Use Now: None Appearance: alert, resting in bed , no acute distress Eyes: No Scleral Icterus Ears/Nose/Mouth/Throat: Clear Oropharnyx, Mucous Membranes Moist Neck: NL Appearance and Movements; NL JVP, Trachea Midline Respiratory: Symmetrical Chest Expansion and Respiratory Effort, Clear to Auscultation Cardiovascular: NL Sounds; No Murmurs; No JVD, No Edema Abdominal: NL Sounds; No Tenderness; No Distention Extremities: No Edema, No Clubbing, Cyanosis Skin: No Rash or Ulcers Neurological: Alert and Oriented x 3 Nutrition: Taking PO's Result Diagrams: 01/13/18 05:21 01/11/18 06:15 Additional Lab and Data: . Assess/Plan/Problems-Billing Assessment: Mr. Constantino is a 47yo male with PMH of ETOH abuse, alcoholic hepatitis, anxiety, depression, and HTN who presented to the ED requesting alcohol detox and was admitted on [facility] protocol. - Patient Problems (1) Alcohol withdrawal Current Visit: Yes Status: Acute Priority: High Code(s): F10.239 - ALCOHOL DEPENDENCE WITH WITHDRAWAL, UNSPECIFIED SNOMED Code(s): 073251989 Comment: - symptoms improved - minimal tremors today.- suspect there is a componet of anxiety related to his tremors as well. - will stop WAM- patient with no signs of withdrawal - Continue MV, thiamine, folic acid (2) Elevated LFTs Current Visit: Yes Status: Acute Priority: High Code(s): R94.5 - ABNORMAL RESULTS OF LIVER FUNCTION STUDIES SNOMED Code(s): 724184833 Comment: - Resolving, secondary to alcoholic hepatitis - Liver US - showed fatty liver infilltrate. Hepatitis panel nonreactive. (3) Anxiety Current Visit: Yes Status: Chronic Priority: High Code(s): F41.9 - ANXIETY DISORDER, UNSPECIFIED SNOMED Code(s): 46526602 Comment: - Continue zoloft and buspar - reviewed with patient that burpar will take some time to achieve peak effects - suspect that some of his hand tremors are likely related to anxiety (4) Depression Current Visit: Yes Status: Chronic Priority: High Code(s): F32.9 - MAJOR DEPRESSIVE DISORDER, SINGLE EPISODE, UNSPECIFIED SNOMED Code(s): 88795016 Comment: - Continue sertraline (5) HTN (hypertension) Current Visit: Yes Status: Chronic Priority: Medium Code(s): I10 - ESSENTIAL (PRIMARY) HYPERTENSION SNOMED Code(s): 02007866 Comment: - Normotensive - Continue lisinopril (6) DVT prophylaxis Current Visit: Yes Status: Acute Priority: High Code(s): YNR5536 - SNOMED Code(s): 373358268 Comment: - SCDs (7) Full code status Current Visit: Yes Status: Acute Priority: High Code(s): Z78.9 - OTHER SPECIFIED HEALTH STATUS SNOMED Code(s): 645321151 Comment: Status and Disposition: Inpatient - WIll discharge to inpatient rehab .
[2018-01-17] MEDS: hydrOXYzine HCL TAB* 50 MG PO PRN (20:00)
[2018-01-18 09:00] VITALS: BP 112/70
[2018-01-18] MEDS: Folic Acid TAB* 1 MG PO SCH (09:06)
[2018-01-18] MEDS: busPIRone TAB* 15 MG PO SCH (09:06)
[2018-01-18] MEDS: Ibuprofen TAB* 600 MG PO PRN (09:06)
[2018-01-18] MEDS: Thiamine TAB* 100 MG TAB PO SCH (09:06)
[2018-01-18] MEDS: Lisinopril TAB* 10 MG PO SCH (09:06)
[2018-01-18] MEDS: Sertraline* 50 MG TAB PO SCH (09:06)
[2018-01-18] MEDS: Multivitamins/Minerals TAB PO SCH (09:07)
--- NOTE | 2018-01-18 10:19 | PN ---
Subjective Date of Service: 01/18/18 Interval History: c/o of feeling anxious about going to rehab today. continues to c/o upper ext tremors. c/o mild headache but states that it is improved after ibuprofen. Denies chest pain or shortness of breath. Denies abd pain n/v/d. Family History: Unchanged from Admission Social History: Unchanged from Admission Past Medical History: Unchanged from Admission Objective Active Medications: Acetaminophen (Tylenol Tab*) 975 mg PO Q6H PRN PRN Reason: FEVER/PAIN Last Admin: 01/10/18 08:54 Dose: 975 mg Al Hydrox/Mg Hydrox/Simethicone (Maalox Plus*) 30 ml PO Q6H PRN PRN Reason: INDIGESTION Albuterol (Ventolin 2.5 Mg/3 Ml Neb.Nydia*) 2.5 mg INH [id number] AWAKE PRN PRN Reason: sob/wheezing Buspirone HCl (Buspar Tab *) 15 mg PO BID [facility] Last Admin: 01/18/18 09:06 Dose: 15 mg Folic Acid (Folvite Tab*) 1 mg PO DAILY [facility] Last Admin: 01/18/18 09:06 Dose: 1 mg Hydroxyzine HCl (Atarax Tab*) 50 mg PO Q6H PRN PRN Reason: ANXIETY Last Admin: 01/17/18 20:00 Dose: 50 mg Ibuprofen (Motrin Tab*) 600 mg PO Q6H PRN PRN Reason: PAIN Last Admin: 01/18/18 09:06 Dose: 600 mg Lisinopril (Prinivil Tab*) 10 mg PO DAILY [facility] Last Admin: 01/18/18 09:06 Dose: 10 mg Multivitamins/Minerals (Theragran/Minerals Tab*) 1 tab PO DAILY [facility] Last Admin: 01/18/18 09:07 Dose: 1 tab Ondansetron HCl (Zofran Inj*) 4 mg IV Q4H PRN PRN Reason: NAUSEA/VOMITING Last Admin: 01/13/18 20:40 Dose: 4 mg Sertraline HCl (Zoloft*) 50 mg PO QAM [facility] Last Admin: 01/18/18 09:06 Dose: 50 mg Thiamine HCl (Vitamin B-1 Tab*) 100 mg PO DAILY [facility] Last Admin: 01/18/18 09:06 Dose: 100 mg Vital Signs - 8 hr 01/18/18 01/18/18 01/18/18 03:47 07:54 08:00 Temperature 98.5 F 99.0 F Pulse Rate 54 65 Respiratory 14 18 19 Rate Blood Pressure 115/74 112/70 (mmHg) O2 Sat by Pulse 100 98 Oximetry Oxygen Devices in Use Now: None Appearance: alert, resting in bed, no acute distress Eyes: No Scleral Icterus Ears/Nose/Mouth/Throat: Clear Oropharnyx, Mucous Membranes Moist Neck: NL Appearance and Movements; NL JVP, Trachea Midline Respiratory: Symmetrical Chest Expansion and Respiratory Effort, Clear to Auscultation Cardiovascular: NL Sounds; No Murmurs; No JVD, RRR, No Edema Abdominal: NL Sounds; No Tenderness; No Distention Extremities: No Edema, No Clubbing, Cyanosis Skin: No Rash or Ulcers Neurological: Alert and Oriented x 3 Nutrition: Taking PO's Result Diagrams: 01/13/18 05:21 01/11/18 06:15 Additional Lab and Data: . Assess/Plan/Problems-Billing Assessment: Mr. Constantino is a 47yo male with PMH of ETOH abuse, alcoholic hepatitis, anxiety, depression, and HTN who presented to the ED requesting alcohol detox and was admitted on [facility] protocol. - Patient Problems (1) Alcohol withdrawal Current Visit: Yes Status: Acute Priority: High Code(s): F10.239 - ALCOHOL DEPENDENCE WITH WITHDRAWAL, UNSPECIFIED SNOMED Code(s): 724844419 Comment: - symptoms continue - minimal tremors today.- suspect there is a component of anxiety related to his tremors as well. - patient with no signs of withdrawal - Continue MV, thiamine, folic acid (2) Elevated LFTs Current Visit: Yes Status: Acute Priority: High Code(s): R94.5 - ABNORMAL RESULTS OF LIVER FUNCTION STUDIES SNOMED Code(s): 804847145 Comment: - Resolving, secondary to alcoholic hepatitis - Liver US - showed fatty liver infilltrate. Hepatitis panel nonreactive. (3) Anxiety Current Visit: Yes Status: Chronic Priority: High Code(s): F41.9 - ANXIETY DISORDER, UNSPECIFIED SNOMED Code(s): 31548091 Comment: - Continue zoloft and buspar - reviewed with patient that buspar will take some time to achieve peak effects - suspect that some of his hand tremors are likely related to anxiety (4) Depression Current Visit: Yes Status: Chronic Priority: High Code(s): F32.9 - MAJOR DEPRESSIVE DISORDER, SINGLE EPISODE, UNSPECIFIED SNOMED Code(s): 50311489 Comment: - Continue sertraline (5) HTN (hypertension) Current Visit: Yes Status: Chronic Priority: Medium Code(s): I10 - ESSENTIAL (PRIMARY) HYPERTENSION SNOMED Code(s): 12521560 Comment: - Normotensive - Continue lisinopril (6) DVT prophylaxis Current Visit: Yes Status: Acute Priority: High Code(s): TEY7990 - SNOMED Code(s): 772333850 Comment: - SCDs (7) Full code status Current Visit: Yes Status: Acute Priority: High Code(s): Z78.9 - OTHER SPECIFIED HEALTH STATUS SNOMED Code(s): 940997264 Comment: Status and Disposition: discharge to [facility] today
--- NOTE | 2018-01-20 04:12 | DS ---
DISCHARGE SUMMARY: DATE OF ADMISSION: 01/09/18 DATE OF DISCHARGE: 01/18/18 PROVIDER: Yaritza Aguilera NP PRIMARY CARE PROVIDER: [facility]. ATTENDING PHYSICIAN WHILE IN THE HOSPITAL: Leonor Evans MD *(dictated by Yaritza Aguilera NP) PRIMARY DIAGNOSES: 1. Alcohol withdrawal. 2. Anxiety. SECONDARY DIAGNOSES: 1. Alcoholic hepatitis. 2. Depression. 3. Hypertension. STUDIES COMPLETED WHILE IN THE HOSPITAL: He had a CT of the brain on 01/09/18, radiologist's impression: No acute intracranial pathology. He had a liver ultrasound on 01/10/18, radiologist's impression: Fatty infiltration of the liver. He had an EKG on 01/09/18, which showed sinus rhythm at a rate of 96. DISCHARGE MEDICATIONS: 1. Buspirone 15 mg p.o. b.i.d. 2. Folic acid 1 mg p.o. daily. 3. Hydralazine 50 mg p.o. t.i.d. p.r.n. as needed for anxiety. 4. Lisinopril 10 mg p.o. daily. 5. Multivitamin 1 tablet p.o. daily. 6. Sertraline 50 mg p.o. q.a.m. 7. Thiamine 100 mg p.o. daily. 8. Ibuprofen 600 mg q.6 hours as needed for pain. 9. Acetaminophen 975 mg p.o. q.6 hours as needed for pain. HISTORY OF PRESENT ILLNESS AND HOSPITAL COURSE: Mr. Constantino is a 47-year-old male with past medical history significant for alcohol abuse, alcoholic hepatitis, hypertension, anxiety, and depression who presented to the emergency room requesting alcohol detoxification. The patient has a longstanding history of alcohol abuse and was most recently admitted to [facility] in September 2017 with alcohol intoxication, relapse and severe alcoholism. He reports over the past few weeks, he has been generally consuming between 20 to 24 drinks per day , subsequently stopped drinking cold turkey over the past weekend and started to notice shaking and tremors in his upper extremities as well as anxiety and agitation. He denies any history of seizure or seizure-like activity in the past couple of days. He denies any chest pain, palpitation, shortness of breath , headache, dizziness, or any other associated symptoms. He has a history of alcoholic hepatitis for which he was admitted in [place] years ago and was extremely jaundiced. He denies any jaundice or changes in the color of stool or urine. He denies any abdominal pain, nausea, or vomiting. He denies any changes in his bowel habits. In the emergency room, he was evaluated. Laboratory workup revealed a normal CBC with the exception of slightly decreased platelets at 135. His LFTs are essentially unchanged from prior admission and his toxicology report showed no evidence of serum alcohol, salicylates, or acetaminophen. He had a CT of the brain, which was within normal limits. He did receive some Librium while in the emergency room and was relatively comfortable, but continued to have anxiety about withdrawal symptoms and we were asked to consider him for admission and nursing home social worker consult regarding his alcohol abuse and potential withdrawal symptoms. While in the hospital, the patient was placed on WAM protocol. He continued to have upper extremity tremors. He did have Librium taper and Ativan as needed for withdrawal symptoms throughout his hospitalization. The patient wanted to go to inpatient rehab and an inpatient rehab bed was found for the patient, resided in the hospital until the day of discharge where he was discharged from the hospital to [facility] for alcohol abuse rehab. At this time, Mr. Constantino is stable for discharge to [facility] rehab. Vital signs are as follows: Blood pressure was 112/70, heart rate 65, respirations 18, O2 saturation 98% on room air, temperature was 99.0. DISCHARGE PLAN: Mr. Constantino will be discharged to [facility] inpatient rehab facility. Activity as tolerated. 1. Alcohol withdrawal. The patient did remain on WAM protocol during his hospitalization. Several days prior to discharge, the patient was not exhibiting any further signs of alcohol withdrawal. WAM protocol was discontinued. The patient did have a Librium taper during his hospitalization to assist with his symptoms of alcohol withdrawal. The patient also had intermittent doses of Ativan to help as well with alcohol withdrawal symptoms. The patient should remain at [facility] Inpatient [facility] for further management of his alcohol abuse. 2. Anxiety. The patient's anxiety has been under managed. I would recommend outpatient therapy and possible adjustments to his medications. He is on buspirone 15 mg p.o. b.i.d. This should be continued. The patient just recently started this medication approximately 2 weeks ago. This was continued during his hospitalization. 3. Depression. The patient should continue on sertraline as previously prescribed as this will help with his depression. 4. Hypertension. He should continue on his lisinopril 10 mg p.o. daily as previously prescribed. He should follow up with his primary care provider in 4 to 7 days. He should seek help from outpatient mental health therapy for his anxiety and depression. The patient should return to the emergency room if he experiences any severe symptoms of withdrawal, chest pain, shortness of breath, or any other concerning symptoms. This is a summarization of his hospitalization. If further details are needed, please obtain the entire medical record. TIME SPENT: Time spent on this discharge was 60 minutes, greater than half the time was spent with the patient discussing discharge plans and instructions. CONDITION ON DISCHARGE: Stable. YARITZA AGUILERA NP [id number]/CPS #: [id number] [place]
== END 2018-01-18 12:16 | DRG 775 ==
LOC: ED 11:44 → MEDTELE 15:11
PROVIDERS: ADMIT Internal Medicine; ATTEND Internal Medicine
DX: F10.239 Alcohol dependence with withdrawal, unspecified (principal); I10 Essential (primary) hypertension; F41.9 Anxiety disorder, unspecified; F32.9 Major depressive disorder, single episode, unspecified; Z96.642 Presence of left artificial hip joint; G43.909 Migraine, unspecified, not intractable, without status migrainosus; R10.11 Right upper quadrant pain; R94.5 Abnormal results of liver function studies; Y90.9 Presence of alcohol in blood, level not specified; K70.10 Alcoholic hepatitis without ascites; K76.0 Fatty (change of) liver, not elsewhere classified; Z86.19 Personal history of other infectious and parasitic diseases; Z82.49 Family history of ischemic heart disease and other diseases of the circulatory system
CPT/HCPCS: 36415; 70450; 76705; 80048; 80053; 80074; 80076; 80307; 80320; 80329; 81003; 82550; 83605; 83735; 84484; 85025; 85610; 93005; 99284; A9270-GY; G0480; J2405; J3411

== ENCOUNTER 2024-05-01 13:56 | Inpatient (IN) ==
[2024-05-01 14:56] LABS: ABS Basophils 0.1 10^3/uL (0.0-0.1); ABS Lymphocytes 1.8 10^3/uL (1.0-4.8); ABS Monocytes 0.7 10^3/uL (0.0-1.1); ABS Neutrophils 7.3 10^3/uL (1.5-7.6); Eosinophil % 0.2 %; Hematocrit 22.9 % (38-53); Hemoglobin 7.6 g/dL (13.2-16.3); Lymphocyte % 18.5 %; Mean Corpuscular Hemoglobin 28.2 pg (27-33); Mean Corpuscular Hgb Conc 33.3 g/dL (31-36); Mean Corpuscular Volume 84.8 fL (80-97); Platelet Count 339 10^3/uL (150-450); Red Blood Count 2.71 10^6/uL (4.06-5.63); Red Cell Distribution Width 14.7 % (12-17); White Blood Count 9.9 10^3/uL (3.6-10.2)
[2024-05-01 15:03] LABS: High Sens Troponin Baseline 13 pg/mL (<20)
[2024-05-01] MEDS: Magnesium Sulfate 2 gm BAG 2 GM/50 ML BAG IVPB ONE ×2 (15:25→21:46)
[2024-05-01 15:27] LABS: ALT 26 U/L (7-52); AST 16 U/L (13-39); Albumin 2.9 g/dL (3.5-5.7); Albumin/Globulin Ratio 0.9 (1-3); Alcohol, S < 13 mg/dL (<13); Alkaline Phosphatase 82 U/L (35-149); Anion Gap 9 mmol/L (2-16); Blood Urea Nitrogen 15 mg/dL (6-24); C Reactive Protein 141.51 mg/L (<8.01); CO2 Carbon Dioxide 24 mmol/L (22-32); Calcium 8.3 mg/dL (8.6-10.3); Chloride 95 mmol/L (101-111); Creatinine, Serum 1.26 mg/dL (0.67-1.17); Globulin 3.3 g/dL (2-4); Glucose 88 mg/dL (70-100); Magnesium 1.6 mg/dL (1.9-2.7); Potassium 4.3 mmol/L (3.5-5.0); Sodium 128 mmol/L (135-145); Total Bilirubin 0.7 mg/dL (0.2-1.0); Total Protein 6.2 g/dL (6.4-8.9); eGFR CKD-EPI 67.8 (>60)
[2024-05-01 15:37] LABS: TSH Ultra Thyroid Stim Horm 2.84 mcIU/mL (0.34-5.60)
[2024-05-01 16:05] LABS: High Sensitivity Troponin 1 Hr 7 pg/mL (<20)
[2024-05-01 17:06] LABS: Urine Appearance Clear; Urine Bilirubin Negative (Negative); Urine Blood Trace (Negative); Urine Color Light-Yellow; Urine Glucose Negative (Negative); Urine Ketones Negative (Negative); Urine Nitrite Negative (Negative); Urine Protein Negative (Negative); Urine Specific Gravity 1.005 (1.002-1.030); Urine Urobilinogen Negative (Negative)
[2024-05-01 17:16] LABS: Urine Bacteria 3+ /HPF (Absent); Urine Red Blood Cell 1+(3-5/hpf) /HPF (0-Trace); Urine White Blood Cell Trace(0-5/hpf) /HPF (0-Trace)
[2024-05-01 17:35] LABS: Urine Benzodiazepine Screen None Detected (None Detect); Urine Cannabinoids Screen None Detected (None Detect); Urine Opiates Screen None Detected (None Detect)
[2024-05-01 21:38] LABS: % Iron Saturation 9 % (15-55); .Transferrin 160 mg/dL (203-362); Iron < 20 ug/dL (50-212); Total Iron Binding Capacity 224 mcg/dL (250-450); Unsaturated Iron Binding 204 ug/dL
[2024-05-01] MEDS: Lactated Ringers 1000 ml BAG 500 ML IV ONE (21:46)
[2024-05-01 22:03] LABS: Ferritin 329.6 ng/mL (24-336)
[2024-05-01 22:06] LABS: Folate 6.15 ng/mL (5.90-24.80)
[2024-05-01 22:07] LABS: Vitamin B12 990 pg/mL (180-914)
[2024-05-01] MEDS: cefTRIAXone 1 gm/50 mL D5W 1 GM/50 ML BAG IV SCH (23:48)
[2024-05-02] MEDS ORDERED: Lorazepam PYXIS KEY PRN (00:08)
[2024-05-02] MEDS: LORazepam 2 mg VIAL 1 ml IV PUSH ONE (00:20)
[2024-05-02] MEDS: DOXYcycline 100 MG in NS 0.9% 250 ml 250 ML IVPB SCH (01:17)
[2024-05-02] MEDS: Metoprolol Tartrate 5 mg VIAL 5 ml VIAL (1 mg/ml) IV ONE ×2 (01:17→02:54)
[2024-05-02 02:45] LABS: ABS Lymphocytes 0.4 10^3/uL (1.0-4.8); ABS Monocytes 0.1 10^3/uL (0.0-1.1); ABS Neutrophils 3.9 10^3/uL (1.5-7.6); Eosinophil % 0.5 %; Hematocrit 24.5 % (38-53); Hemoglobin 8.2 g/dL (13.2-16.3); Lymphocyte % 8.8 %; Mean Corpuscular Hemoglobin 28.4 pg (27-33); Mean Corpuscular Hgb Conc 33.3 g/dL (31-36); Mean Corpuscular Volume 85.1 fL (80-97); Platelet Count 329 10^3/uL (150-450); Red Blood Count 2.87 10^6/uL (4.06-5.63); Red Cell Distribution Width 14.5 % (12-17); White Blood Count 4.4 10^3/uL (3.6-10.2)
[2024-05-02] MEDS: Multivitamins/Minerals TAB PO SCH (02:54)
[2024-05-02 02:57] LABS: Calcium 8.1 mg/dL (8.6-10.3); Creatinine, Serum 1.15 mg/dL (0.67-1.17); Magnesium 2.3 mg/dL (1.9-2.7); Potassium 4.3 mmol/L (3.5-5.0); eGFR CKD-EPI 75.6 (>60)
[2024-05-02] MEDS: Lactated Ringers 1000 ml BAG 1,000 ML IV SCH ×2 (04:18→12:06)
[2024-05-02] MEDS: Iohexol 350 (CONTRAST) 500 ML MDV IV ONE (05:17)
[2024-05-02] MEDS ORDERED: Venlafaxine 75 mg CAP (NF) PO SCH (09:00)
[2024-05-02] MEDS: cefTRIAXone 2 gm/50 mL D5W 2 GM/50 ML BAG IV SCH (11:42)
[2024-05-02] MEDS: Enoxaparin 40 MG/0.4 ML SYR SUBCUT SCH (20:32)
[2024-05-03 07:11] LABS: ABS Basophils 0.1 10^3/uL (0.0-0.1); ABS Eosinophils 0.2 10^3/uL (0.0-0.5); ABS Lymphocytes 2.3 10^3/uL (1.0-4.8); ABS Monocytes 0.4 10^3/uL (0.0-1.1); Eosinophil % 3.1 %; Hematocrit 23.6 % (38-53); Hemoglobin 7.9 g/dL (13.2-16.3); Lymphocyte % 28.1 %; Mean Corpuscular Hemoglobin 28.9 pg (27-33); Mean Corpuscular Hgb Conc 33.6 g/dL (31-36); Mean Corpuscular Volume 86.1 fL (80-97); Platelet Count 289 10^3/uL (150-450); Red Blood Count 2.74 10^6/uL (4.06-5.63); Red Cell Distribution Width 14.7 % (12-17)
[2024-05-03 07:35] LABS: Calcium 7.5 mg/dL (8.6-10.3); Creatinine, Serum 0.85 mg/dL (0.67-1.17); eGFR CKD-EPI 103.3 (>60)
[2024-05-03] MEDS: CMC:Venlafaxine 25 mg TAB (NF) PO SCH (10:11)
[2024-05-03 10:30] VITALS: BP 107/74
== END 2024-05-03 14:30 | disposition home or self-care (01) | DRG 871 ==
LOC: EDHOLD 13:56 → ED 13:56 → SUATTDRO 20:55 → OBSVTOIN 20:55 → MED 05-02 00:32
PROVIDERS: ADMIT Student in an Organized Health Care Education/Training Program; ATTEND Hospitalist